=== PATIENT | female | born 1985 | race Caucasian/White ===

== ENCOUNTER 2019-08-28 11:50 | Emergency (ER) | payer OTHER, SELFPAY ==
--- NOTE | ~2019-08-28 | XR_ITS ---
EXAMINATION: XR chest 2V DATE: 08/28/2019 12:56 INDICATION: Asthma presenting with shortness of breath, cough and left basilar crackles. TECHNIQUE: PA and lateral views of the chest were obtained. COMPARISON: Chest radiograph dated FINDINGS: The lungs remain clear with no focal airspace opacities, pulmonary edema, pleural effusion or pneumot horax. The cardiomediastinal silhouette is normal. Visualized bones and soft tissues are unremarkable . IMPRESSION: 1. No acute cardiopulmonary disease. Reviewed, dictated and finalized at location A.
[2019-08-28 11:57] VITALS: BP 150/97; PULSE 20; RESP 20; TEMP 37.7; O2SAT 97
--- NOTE | 2019-08-28 12:26 | ED.URI ---
HPI - URI/Sore Throat General Chief Complaint: Upper Respiratory Infection Stated Complaint: cough and chest hurting / Time Seen by Provider: 08/28/19 12:26 Source: patient and RN notes reviewed Mode of arrival: ambulatory Limitations: no limitations History of Present Illness HPI Narrative: 34 year old female who is 7 weeks presents to express care with complaints of cough with shortness of breath for the past one week duration. Patient states that she has not had any known fever, chills or sweats, does have history of asthma and seasonal allergies. Patient states that she has been using her inhaler but doesn't seem to be resolving her shortness of breath or cough. Patient states that she has also noted itchy eyes. clear nasal drainage and also itchy feeling ears. Patient states that her cough is productive of clear colored mucous. Patient has noted wheezing in all lung ford with some rhonhi noted to left lung base, SAO2 97% on room air, no tachypnea noted. 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 MD elicited complaint: cough and other Pertinent past history: asthma and seasonal allergies Onset (ago): week(s) (1) Consistency: progressively worsening Severity: moderate Description of mucous: clear Able to tolerate fluids by mouth: Yes Exacerbating factors: exertion and deep breaths Relieving factors: rest and other (inhaler) Associated symptoms: rhinorrhea, cough and shortness of breath Treatments prior to arrival: other (inhaler) Related Data Home Medications Medication Instructions Recorded Confirmed albuterol sulfate 2 puff INHALATION QID 08/28/19 08/28/19 amlodipine 10 mg PO DAILY 08/28/19 08/28/19 cetirizine [Zyrtec] 10 mg PO DAILY 08/28/19 08/28/19 [id number] 1 cap PO DAILY 08/28/19 08/28/19 [One-A-Day Women's 1] Allergies Allergy/AdvReac Type Severity Reaction Status Date / Time Sulfa (Sulfonamide Allergy Unknown Swelling Verified 08/28/19 12:19 Antibiotics) of Lip/Tongue/Throat vancomycin Allergy Unknown Rash Verified 08/28/19 12:19 Review of Systems Review of Systems: Narrative: CONSTITUTIONAL: Denies fever, chills, or sweats. EYES: Denies visual changes, redness, or discharge. ENT:Positive clear rhinorrhea, congestion,no sore throat, itching of ears CARDIOVASCULAR: Denies chest pain, palpitations, or edema. RESPIRATORY: Positive cough or dyspnea especially with exertion. GASTROINTESTINAL: Denies abdominal pain, nausea, vomiting, or diarrhea. GENITOURINARY: Denies dysuria or hematuria. SKIN: Denies rash or itching. MUSCULOSKELETAL: Denies back pain, joint pain, or myalgia. NEUROLOGIC: Denies headache, numbness, or weakness. PSYCHIATRIC: Denies anxiety or depression. All systems reviewed & are unremarkable except as noted in HPI and below PMFSH Past Medical History Medical History (Updated 08/29/19 @ 14:29 by Kyung Connelly NP) Asthma Crohn's disease Hypertension Kidney stone Seasonal allergies Surgical History Surgical History (Updated 08/29/19 @ 14:21 by Kyung Connelly NP) Previous section S/P ureteral stent placement Social History Social History (Updated 08/29/19 @ 14:21 by Kyung Connelly NP) Smoking status: Never smoker Living arrangements: with family Gender identity (if verbalized by the patient): Female Comments At time of signature, agree with nursing past medical, surgical, social history. There is no relevant family history pertinent to the presenting complaint Exam Narrative: Exam Narrative: GENERAL: Well-appearing, well-nourished, and in no acute distress. HEAD: Normocephalic, atraumatic. EYES: PERRLA and EOMI. ENT: Nares turbinates red, clear rhinorrhea no epistaxis. Mucous membranes moist.TM's normal with good light reflex, throat pink with no lesions or exudates, no tonsil swelling, clear nasal drainage noted. NECK: Supple.no lymphadenopathy CHEST:scatterd
== END 2019-08-28 13:40 | disposition home or self-care (01) ==
PROVIDERS: Emergency Provider Registered Nurse
DX: O99.89 Other specified diseases and conditions complicating pregnancy, childbirth and the puerperium (principal); J45.41 Moderate persistent asthma with (acute) exacerbation; Z3A.01 Less than 8 weeks gestation of pregnancy
CPT/HCPCS: 71046; 99213; G0463

== ENCOUNTER 2019-10-28 08:14 | Outpatient (CLI) | payer OTHER, SELFPAY ==
[2019-10-28 09:44] LABS: Basophils Absolute Auto 0.03 K/mm3 (0.00-0.10); Basophils Percent Auto 0.3 % (0.0-1.0); Eosinophils Absolute Auto 0.19 K/mm3 (0.02-0.50); Hematocrit 37.8 % (35.0-49.0); Hemoglobin 13.3 g/dL (12.0-15.0); Immature Granulocyte Absolute 0.13 K/mm3 (0.00-0.00); Immature Granulocyte Percent A 1.4 % (0.0-0.0); Lymphocytes Absolute Auto 1.38 K/mm3 (1.10-4.50); Lymphocytes Percent Auto 14.4 % (18.0-42.0); Mean Corpuscular HGB Conc 35.2 g/dL (32.0-36.0); Mean Corpuscular Hemoglobin 31.1 pg (27.0-31.0); Mean Corpuscular Volume 88.3 fL (78.0-102.0); Mean Platelet Volume 9.1 fl (9.2-11.8); Monocytes Absolute Auto 0.27 K/mm3 (0.10-0.90); Monocytes Percent Auto 2.8 % (2.0-11.0); Neutrophils Absolute Auto 7.6 K/mm3 (1.7-7.2); Neutrophils Percent Auto 79.1 % (50.0-70.0); Platelet Count Result 290 K/mm3 (150-420); Red Blood Count 4.28 M/mm3 (4.20-5.40); Red Cell Distribution Width 13.3 % (11.6-14.4); White Blood Count 9.6 K/mm3 (4.8-10.8)
[2019-10-28 11:17] LABS: Glucose 1 Hour PP 50gm Dose 147 mg/dL (70-130)
[2019-10-28 11:57] LABS: HIV 1 P24 AG Negative (Negative); HIV 1/2 AB Negative (Negative)
[2019-10-30 13:59] LABS: Varicella IgG Antibody >4000.00 Index (>=165.00)
[2019-10-30 19:26] LABS: RPR Screen Non-Reactive (Non-Reactive)
[2019-10-31 02:45] LABS: Hepatitis B Surface Antigen Nonreactive (Nonreactive)
[2019-10-31 10:31] LABS: CMV IgG Antibody <0.60 U/mL (<0.60)
[2019-11-01 17:12] LABS: Rubella IgG Antibody 1.47 Index (>=1.00)
== END 2019-10-28 08:15 | disposition home or self-care (01) ==
PROVIDERS: Visit Provider Obstetrics & Gynecology
DX: N92.5 Other specified irregular menstruation (principal)
CPT/HCPCS: 36415; 82947; 84702; 85025; 86592; 86644; 86703; 86747; 86762; 86787; 86850; 86900; 86901; 87086

== ENCOUNTER 2019-11-02 08:42 | Outpatient (CLI) | payer OTHER, SELFPAY ==
[2019-11-02 09:23] LABS: Glucose Fasting Gestational 94 mg/dL (>/=95)
[2019-11-02 10:40] LABS: Glucose 1 Hour Gest 163 mg/dL (70-130)
[2019-11-02 11:19] LABS: Glucose 2 Hour Gest 133 mg/dL (<155)
[2019-11-02 12:15] LABS: Glucose 3 Hour Gest 129 mg/dL (>/=140)
== END 2019-11-02 08:43 | disposition home or self-care (01) ==
LOC: CHSLAB 08:44
PROVIDERS: PCP Obstetrics & Gynecology; Visit Provider Obstetrics & Gynecology
DX: R73.09 Other abnormal glucose (principal)
CPT/HCPCS: 36415; 82951; 82952

== ENCOUNTER 2019-11-11 10:23 | Emergency (ER) | payer OTHER, SELFPAY ==
--- NOTE | ~2019-11-11 | US_ITS ---
EXAMINATION: US OB limited DATE: 11/11/2019 12:43 INDICATION: Inconsistent heart tones during second trimester . TECHNIQUE: Real-time ultrasound of the pelvis was performed. The interpreting radiologist was not pre sent for the study. COMPARISON: None. FINDINGS: There is a single living fetus in vertex presentation. The placenta is posterior and low-lying with caudal margin 2.3 cm from the internal cervical os. heart rate is 141 beats per minute (bpm). T he amniotic fluid volume is subjectively normal. 1 cm low-attenuation centered in the myometrium of t he anterior lower uterine segment which appears subtly visible on the prior study which could represe nt either a small fibroid or a granuloma along a section scar. IMPRESSION: 1. Single living fetus in vertex presentation with heart rate of 141 bpm. 2. Low-lying placenta with caudal margin 2.3 cm from the internal cervical os. 3. 1 cm hypoechoic likely uterine fibroid in the anterior wall of the lower uterine segment. Reviewed, dictated and finalized at location A. IMPRESSION: 1. Single living fetus in vertex presentation with heart rate of 141 bpm . 2. Low-lying placenta with caudal margin 2.3 cm from the internal cervical os. 3. 1 cm hypoechoic likely uterine fibroid in the anterior wall of the lower carter rine segment.
[2019-11-11 10:47] LABS: Glucose Point of Care 136 (65-105)
[2019-11-11 10:50] VITALS: BP 164/98; PULSE 95; RESP 16; TEMP 36.6; O2SAT 100
[2019-11-11] MEDS: SODIUM CHLORIDE 0.9% IV 500 ML IV CONT (11:05)
[2019-11-11 11:10] VITALS: BP 136/92; PULSE 97; RESP 14; O2SAT 100
[2019-11-11 11:12] LABS: Basophils Absolute Auto 0.04 K/mm3 (0.00-0.10); Basophils Percent Auto 0.4 % (0.0-1.0); Eosinophils Absolute Auto 0.12 K/mm3 (0.02-0.50); Eosinophils Percent Auto 1.1 % (1.0-6.0); Hemoglobin 12.5 g/dL (12.0-15.0); Immature Granulocyte Absolute 0.17 K/mm3 (0.00-0.00); Immature Granulocyte Percent A 1.6 % (0.0-0.0); Lymphocytes Absolute Auto 1.29 K/mm3 (1.10-4.50); Lymphocytes Percent Auto 12.1 % (18.0-42.0); Mean Corpuscular HGB Conc 34.7 g/dL (32.0-36.0); Mean Corpuscular Hemoglobin 30.9 pg (27.0-31.0); Mean Corpuscular Volume 88.9 fL (78.0-102.0); Mean Platelet Volume 9.2 fl (9.2-11.8); Monocytes Absolute Auto 0.37 K/mm3 (0.10-0.90); Monocytes Percent Auto 3.5 % (2.0-11.0); Neutrophils Absolute Auto 8.7 K/mm3 (1.7-7.2); Neutrophils Percent Auto 81.3 % (50.0-70.0); Platelet Count Result 291 K/mm3 (150-420); Red Blood Count 4.05 M/mm3 (4.20-5.40); Red Cell Distribution Width 13.4 % (11.6-14.4); White Blood Count 10.7 K/mm3 (4.8-10.8)
[2019-11-11 11:13] LABS: Add Urine Microscopic? YES; Bilirubin Urine Negative (Negative); Blood Urine Negative (Negative); Color Urine Yellow (Yellow); Glucose Urine UA Negative (Negative); Ketones Urine Trace (Negative); Leukocyte Esterase Ur Trace LEU/UL (Negative); Nitrate Urine Negative (Negative); Protein Urine 1+ (Negative); Specific Grav Ur >= 1.030 (1.010-1.020); Urobilinogen Urine 0.2 mg/dL (0.2-1.0)
[2019-11-11 11:18] LABS: Appearance Urine Sl Cloudy (Clear); Bacteria Urine 2+ /hpf; Mucus Urine Few /lpf; RBC Urine 0-2 /hpf (0-2); Squamous Epithelial Cell Urine Moderate /hpf (Few)
--- NOTE | 2019-11-11 11:34 | PC.NURSE ---
RN attempted heart tones at this time. Very brief heart tones. RN was unable to get a rate with doppler. erp made aware.
[2019-11-11 11:54] LABS: Alanine Aminotransferase 18 U/L (14-59); Albumin Level 3.1 g/dL (3.4-5.0); Alkaline Phosphatase 71 U/L (46-116); Aspartate Amino Transferase 12 U/L (15-37); Bilirubin,Total 0.1 mg/dL (0.00-1.00); Blood Urea Nitrogen 4 mg/dL (7-18); Calcium 8.9 mg/dL (8.5-10.1); Carbon Dioxide 26 mmol/L (21-32); Chloride 103 mmol/L (98-108); Estimated CRCL calculation 117 ml/min; Estimated Glomerular Filt Rate > 60; Glucose 136 mg/dL (70-99); Osmolality Calculated 286 mOsm/kg (285-295); Sodium 139 mmol/L (136-145); Total Protein 7.3 g/dL (6.4-8.2)
[2019-11-11 11:55] LABS: Partial Thromboplastin Time 24.4 SEC (22.3-31.6)
[2019-11-11] MEDS: ACETAMINOPHEN 325 MG TABLET 650 MG PO (12:25)
--- NOTE | 2019-11-11 12:35 | ED.DIZZY ---
HPI - Dizziness General Chief Complaint: Dizziness Stated Complaint: 34YO at 16 weeks IUP w/ known h.o HTN was on amiodarone which was discontinued at onset of by OB. Her Bp were bring monitored by OB and has started her first dose of labetalol 100mg today followed by lightheadedness while at work. Here for [employer], works at [employer]. Admits to feeling baby move.ss out/Shakey Related Data Home Medications Medication Instructions Recorded Confirmed albuterol sulfate 2 puff INHALATION QID 08/28/19 11/11/19 [id number] 1 cap PO DAILY 08/28/19 11/11/19 [One-A-Day Women's 1] labetalol 100 mg PO Q12H 11/11/19 11/11/19 Allergies Allergy/AdvReac Type Severity Reaction Status Date / Time Sulfa (Sulfonamide Allergy Unknown Swelling Verified 08/28/19 12:19 Antibiotics) of Lip/Tongue/Throat vancomycin Allergy Unknown Rash Verified 08/28/19 12:19 Review of Systems Review of Systems: All systems reviewed & are unremarkable except as noted in HPI and below Constitutional: Constitutional: Reports as per HPI and Reports no additional constitutional complaints Eyes: Eyes: Reports as per HPI and Reports no additional eye complaints ENT: Reports system reviewed and no additional complaints, except as documented and Reports as per HPI Cardiovascular: Cardiovascular: Reports as per HPI and Reports no additional cardiovascular complaints Respiratory: Respiratory: Reports as per HPI and Reports no additional respiratory complaints Gastrointestinal: Gastrointestinal: Reports as per HPI and Reports no additional gastrointestinal complaints Genitourinary: Genitourinary: Reports no additional female genitourinary complaints and Reports as per HPI Musculoskeletal: Musculoskeletal: Reports no additional musculoskeletal complaints and Reports as per HPI Integumentary/Breasts: Skin/Breast: Reports system reviewed and no additional complaints, except as docu Neurologic: Denies confusion, Denies vertigo, Reports dizziness (LIghtheaded while at work today), Denies syncope, Denies headache(s), Denies focal weakness, Denies numbness and Denies weakness Psychiatric: Psychiatric: Reports no additional psychiatric complaints Endocrine: Endocrine: Reports no additional endocrine complaints Hematologic/Lymphatic: Hematologic/Lymphatic: Reports no additional hematologic/lymphatic complaints Allergic/Immunologic: Allergic/Immunologic: Reports no additional allergic/immunologic complaints [facility] [place] Past Medical History Medical History Asthma Crohn's disease Hypertension Kidney stone Seasonal allergies Surgical History Surgical History Previous section S/P ureteral stent placement Social History Social History Smoking status: Never smoker Gender identity (if verbalized by the patient): Female Exam Const: General: no acute distress HENMT: Head: normal to inspection Eyes: Pupils: Equal, round and reactive pupils present Chest: Chest palpation & inspection: normal inspection of the chest Resp: Effort & Inspection: normal respiratory effort Auscultation: clear to auscultation bilaterally Cardio: Rate: regular rate Rhythm: regular rhythm GI: Inspection: distended Other: Gravid : General: Yes no CVA tenderness Back/Spine/Pelvis: Back: no CVA tenderness Neuro: General: patient oriented x3, moves all extremities, no focal motor deficits and CN's II-XI intact bilaterally Extrem: General: normal to inspection Psych: Mental Status: mental status grossly normal Course Course Emergency Course: D/W Dr Carpio (OB) covering for Dr Herrera (OB). Reviewed results of w/u with him. He is comfortable d/c patyient home to f/u w/ Dr Koenig at next scheduled appt. He feels patients symptoms are explained by likely
[2019-11-11] MEDS: ONDANSETRON INJ 4 MG/2 ML VIAL IV PUSH (12:48)
--- NOTE | 2019-11-11 13:09 | PC.NURSE ---
OBGYN CONSULTED AT THIS TIME WITH ER FINDINGS. PLEASE SEE ERP DOCUMENTATION.
[2019-11-11] MEDS: POTASSIUM CHLORIDE 20 MEQ TABLET 40 MEQ PO (13:18)
[2019-11-11 13:19] VITALS: BP 145/77; PULSE 98; RESP 14; O2SAT 95
== END 2019-11-11 13:24 | disposition home or self-care (01) ==
PROVIDERS: Emergency Provider Family Medicine; PCP Obstetrics & Gynecology
DX: E86.0 Dehydration (principal); Z33.1 Pregnant state, incidental
CPT/HCPCS: 36415; 76815; 80053; 81001; 84702; 85025; 85610; 85730; 96361; 96374; 99283; 99284; A9270; J2405; J7040

== ENCOUNTER 2019-11-25 12:52 | Outpatient (CLI) | payer OTHER, SELFPAY ==
[2019-11-25 13:11] LABS: Total Protein Urine Random 28.1 mg/dL (0.0-11.9)
[2019-11-25 13:12] LABS: Total Protein Urine 24 Hr 253 mg/24hr (0-149); Total Volume 24 Hour Urine 900 ml
== END 2019-11-25 12:53 | disposition home or self-care (01) ==
LOC: CHSLAB 12:54
PROVIDERS: PCP Obstetrics & Gynecology; Visit Provider Obstetrics & Gynecology
DX: O16.9 Unspecified maternal hypertension, unspecified trimester (principal)
CPT/HCPCS: 81050; 84156

== ENCOUNTER 2019-11-27 12:24 | Observation (INO) | payer OTHER, SELFPAY ==
[2019-11-27 14:45] VITALS: BP 140/85; PULSE 93
[2019-11-27 15:00] VITALS: BP 141/89; PULSE 83
[2019-11-27] MEDS: DEXTROSE 5%/LACTATED RINGERS 1,000 ML 1000 ML IV CONT (15:12)
[2019-11-27] MEDS: FAMOTIDINE 20 MG/2 ML VIAL IV PUSH (15:14)
[2019-11-27] MEDS: PROMETHAZINE HCL 25 MG/ML AMPUL 12.5 MG IV PUSH (15:14)
[2019-11-27 15:15] VITALS: BP 147/81; PULSE 88
[2019-11-27 15:20] LABS: Add Urine Microscopic? YES; Appearance Urine Cloudy (Clear); Bacteria Urine Trace /hpf; Bilirubin Urine Negative (Negative); Blood Urine Negative (Negative); Color Urine Yellow (Yellow); Glucose Urine UA Negative (Negative); Ketones Urine 2+ mg/dL (Negative); Leukocyte Esterase Ur 2+ LEU/UL (NEGATIVE); Mucus Urine Heavy /lpf; Nitrate Urine Negative (Negative); Protein Urine 2+ mg/dL (Negative); Specific Grav Ur 1.026 (1.001-1.035); Squamous Epithelial Cell Urine Many /hpf (Few); Urobilinogen Urine Negative mg/dL (<2.0)
[2019-11-27] MEDS: LACTATED RINGERS 1,000 ML 999 ML IV CONT (16:17)
[2019-11-27 17:04] VITALS: BMI 35.2
[2019-11-27 17:15] VITALS: RESP 18; TEMP 36.6
[2019-11-27] MEDS: ACETAMINOPHEN 325 MG TABLET 650 MG PO (17:26)
--- NOTE | 2019-11-27 19:00 | PC.NURSE ---
pt ate regular diet meal tray and denies n/v.
--- NOTE | 2019-12-07 11:22 | PM.OBTRLD ---
OB - Triage/Final Diagnosis Evaluation Laboratory results: Laboratory Tests 11/27/19 14:53 Urine Color Yellow Urine Appearance Cloudy H Urine pH 6.0 Ur Specific [place] 1.026 Urine Protein 2+ H Urine Glucose (UA) Negative Urine Ketones 2+ H Ur Blood (Man) Negative Urine Nitrate Negative Urine Bilirubin Negative Urine Urobilinogen Negative Ur Leukocyte Esterase 2+ H Urine RBC 3-5 H Urine WBC 7-9 H Ur Squamous Epith Cells Many H Urine Bacteria Trace Urine Mucus Heavy H Final Diagnosis (1) Nausea & vomiting: Code(s): R11.2 - Nausea with vomiting, unspecified Status: Acute
== END 2019-11-27 19:22 | disposition home or self-care (01) ==
PROVIDERS: Admitting Provider Obstetrics & Gynecology; PCP Obstetrics & Gynecology; Visit Provider Obstetrics & Gynecology
DX: O21.9 Vomiting of pregnancy, unspecified (principal); Z3A.00 Weeks of gestation of pregnancy not specified
CPT/HCPCS: 81001; 87086; 96361; 96374; 96375; A9270; G0378; G0379; J2550; J7120; J7121

== ENCOUNTER 2019-12-10 18:18 | Emergency (ER) | payer OTHER, SELFPAY ==
[2019-12-10 18:30] VITALS: BP 166/103; PULSE 107; RESP 18; TEMP 36.5; O2SAT 100
--- NOTE | 2019-12-10 18:52 | ED.ARRPALP ---
HPI - Arrhythmia/Palpitations General Chief Complaint: Arrhythmia/Palpitations Stated Complaint: heart palpitations, 21 weeks Time Seen by Provider: 12/10/19 18:52 History of Present Illness HPI narrative: 34-year-old female patient, 4 and para 3, approximately 21 weeks is here with chief complaints of palpitations. The patient states that she has had intermittent palpitations off and on for a while. She denies any associated chest pain except for feeling some heaviness at the time of palpitations. She denies any unusual shortness of breath. She denies any leg swelling. She denies any lightheadedness or passing out spells. The patient states that she has had blood pressure in this and prior pregnancies as well. 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 She has notified of the same to her obstruction and has an appointment coming up next Saturday with him. She states that the baby is kicking around well and has not had any vaginal discharge or bleeding. Related Data Home Medications Medication Instructions Recorded Confirmed albuterol sulfate 2 puff INHALATION QID 08/28/19 11/11/19 metoclopramide HCl 10 mg PO PRN PRN 12/10/19 12/10/19 montelukast 10 mg PO DAILY 12/10/19 12/10/19 Allergies Allergy/AdvReac Type Severity Reaction Status Date / Time Sulfa (Sulfonamide Allergy Unknown Swelling Verified 08/28/19 12:19 Antibiotics) of Lip/Tongue/Throat vancomycin Allergy Unknown Rash Verified 08/28/19 12:19 Review of Systems Review of Systems: All systems reviewed & are unremarkable except as noted in HPI and below Constitutional: Constitutional: Reports no additional constitutional complaints Eyes: Eyes: Reports no additional eye complaints, Denies change in vision and Denies photophobia ENT: Denies dysphagia, Denies vertigo, Denies dizziness, Denies nasal congestion and Denies sore throat Cardiovascular: Cardiovascular: Reports no additional cardiovascular complaints, Denies chest pain, Reports rapid heart rate and Denies radiating jaw, neck or arm pain Respiratory: Respiratory: Reports no additional respiratory complaints, Denies cough, Denies dyspnea and Denies wheezing Gastrointestinal: Gastrointestinal: Reports no additional gastrointestinal complaints, Denies abdominal pain, Denies diarrhea, Denies nausea and Denies vomiting Genitourinary: Genitourinary: Reports no additional female genitourinary complaints Musculoskeletal: Musculoskeletal: Reports no additional musculoskeletal complaints, Denies myalgias, Denies arthralgias, Denies joint swelling and Denies muscle cramps Integumentary/Breasts: Skin/Breast: Reports system reviewed and no additional complaints, except as docu Neurologic: Reports system reviewed and no additional complaints, except as documented, Denies confusion, Denies vertigo, Denies dizziness, Denies syncope, Denies headache(s), Denies focal weakness, Denies numbness and Denies weakness Psychiatric: Psychiatric: Reports no additional psychiatric complaints PMFSH Past Medical History Medical History Asthma Crohn's disease Hypertension Kidney stone Seasonal allergies Surgical History Surgical History Previous section S/P ureteral stent placement Social History Social History Smoking status: Never smoker Gender identity (if verbalized by the patient): Female Exam Const: General: healthy appearing, no acute distress and alert; No diaphoretic or ill appearing Nutritional Appearance: well nourished Orientation/consciousness: patient oriented x3 Limitations: no limitations HENMT: Head: normal to inspection Mouth: Yes Normal oral and palatal mucosa present Ey
[2019-12-10 19:02] VITALS: BP 166/96; PULSE 96; RESP 18; O2SAT 100
[2019-12-10 19:19] LABS: Add Urine Microscopic? YES; Appearance Urine Clear (Clear); Basophils Absolute Auto 0.03 K/mm3 (0.00-0.10); Basophils Percent Auto 0.3 % (0.0-1.0); Bilirubin Urine Negative (Negative); Blood Urine Negative (Negative); Color Urine Yellow (Yellow); Eosinophils Absolute Auto 0.34 K/mm3 (0.02-0.50); Glucose Urine UA Negative (Negative); Hematocrit 34.7 % (35.0-49.0); Hemoglobin 11.9 g/dL (12.0-15.0); Immature Granulocyte Absolute 0.15 K/mm3 (0.00-0.00); Immature Granulocyte Percent A 1.3 % (0.0-0.0); Ketones Urine 3+ (Negative); Leukocyte Esterase Ur 1+ (Negative); Lymphocytes Absolute Auto 1.82 K/mm3 (1.10-4.50); Lymphocytes Percent Auto 16.2 % (18.0-42.0); Mean Corpuscular HGB Conc 34.3 g/dL (32.0-36.0); Mean Corpuscular Hemoglobin 30.7 pg (27.0-31.0); Mean Corpuscular Volume 89.4 fL (78.0-102.0); Mean Platelet Volume 9.3 fl (9.2-11.8); Monocytes Percent Auto 5.3 % (2.0-11.0); Neutrophils Absolute Auto 8.3 K/mm3 (1.7-7.2); Neutrophils Percent Auto 73.9 % (50.0-70.0); Nitrate Urine Negative (Negative); Platelet Count Result 301 K/mm3 (150-420); Protein Urine Negative (Negative); Red Blood Count 3.88 M/mm3 (4.20-5.40); Red Cell Distribution Width 13.6 % (11.6-14.4); Urobilinogen Urine 0.2 mg/dL (0.2-1.0); White Blood Count 11.3 K/mm3 (4.8-10.8)
[2019-12-10 19:33] VITALS: BP 133/82; PULSE 99; RESP 18; O2SAT 99
[2019-12-10 19:33] LABS: Bacteria Urine 1+ /hpf; Calcium Oxalate Crystals Urine Present /hpf; RBC Urine 0-2 /hpf (0-2); Squamous Epithelial Cell Urine Few /hpf (Few)
[2019-12-10 19:37] LABS: Alanine Aminotransferase 15 U/L (14-59); Alkaline Phosphatase 85 U/L (46-116); Aspartate Amino Transferase 14 U/L (15-37); Bilirubin Direct 0.1 mg/dL (0-0.2); Bilirubin,Total 0.2 mg/dL (0.00-1.00); Total Protein 7.1 g/dL (6.4-8.2)
[2019-12-10 19:47] VITALS: BP 125/77
== END 2019-12-10 20:21 | disposition home or self-care (01) ==
PROVIDERS: Emergency Provider Emergency Medicine
DX: R00.2 Palpitations (principal)
CPT/HCPCS: 36415; 80076; 81001; 85025; 99283

== ENCOUNTER 2019-12-25 11:29 | Observation (INO) | payer OTHER, SELFPAY ==
[2019-12-25 12:00] VITALS: BMI 34.9
[2019-12-25 13:03] VITALS: BP 138/88; PULSE 101
[2019-12-25] MEDS: DEXTROSE 5%/LACTATED RINGERS 1,000 ML 150 ML IV CONT (13:04)
[2019-12-25] MEDS: PROMETHAZINE HCL 25 MG/ML AMPUL 12.5 MG IV PUSH (13:05)
[2019-12-25] MEDS: FAMOTIDINE 20 MG/2 ML VIAL IV PUSH (13:05)
[2019-12-25 13:16] VITALS: BP 125/76; PULSE 95
--- NOTE | 2019-12-25 17:55 | PM.OBTRLD ---
OB - Triage/Final Diagnosis Final Diagnosis (1) Nausea & vomiting: Code(s): R11.2 - Nausea with vomiting, unspecified Status: Acute
== END 2019-12-25 16:32 | disposition home or self-care (01) ==
PROVIDERS: Admitting Provider Obstetrics & Gynecology; Visit Provider Obstetrics & Gynecology
DX: O21.9 Vomiting of pregnancy, unspecified (principal); Z3A.00 Weeks of gestation of pregnancy not specified
CPT/HCPCS: 96374; 96375; G0378; G0379; J2550; J7121

== ENCOUNTER 2020-01-13 11:08 | Outpatient (CLI) | payer OTHER, SELFPAY ==
--- NOTE | 2020-01-13 11:25 | ECG_ITS ---
Measurements Intervals [place] Rate: 87 P: 34 DC: 106 QRS: 12 QRSD: 87 T: -3 QT: 356 QTc: 429 Interpretive Statements SINUS RHYTHM WITH SHORT DC INTERVAL VOLTAGE CRITERIA FOR LVH BORDERLINE T WAVE ABNORMALITY- INFERIOR LEADS BORDERLINE ECG Electronically Signed On 01-13-2020 11:35:23 CDT by Bong Billingsley D.O.
== END 2020-01-13 11:09 | disposition home or self-care (01) ==
PROVIDERS: PCP Obstetrics & Gynecology; Visit Provider Obstetrics & Gynecology
DX: O16.9 Unspecified maternal hypertension, unspecified trimester (principal)
CPT/HCPCS: 93005

== ENCOUNTER 2020-01-29 08:57 | Outpatient (CLI) | payer OTHER, SELFPAY ==
[2020-01-29 10:29] LABS: Hematocrit 33.3 % (37.0-47.0); Hemoglobin 11.4 g/dL (12.0-15.0); Mean Corpuscular HGB Conc 34.2 g/dl (32-36); Mean Corpuscular Hemoglobin 30.9 pg (26-34); Mean Corpuscular Volume 90.2 fl (80-100); Mean Platelet Volume 9.2 fl (7.4-10.4); Platelet Count Result 274 k/mm3 (150-375); Red Blood Count 3.69 M/mm3 (4.2-5.4); Red Cell Distribution Width 14.2 % (11.5-14.5)
[2020-01-29 10:40] LABS: Glucose 1 Hour PP 50gm Dose 142 mg/dL
[2020-01-29 11:21] LABS: HIV 1/2 Ab P24 Ag Result Negative (Negative)
[2020-01-30] MEDS: RHO(D) IMMUNE GLOBULIN 300 MCG SYRINGE IM (09:14)
== END 2020-01-29 08:58 | disposition home or self-care (01) ==
LOC: ANHLAB 08:58
PROVIDERS: Visit Provider Obstetrics & Gynecology
DX: Z34.92 Encounter for supervision of normal pregnancy, unspecified, second trimester (principal); Z3A.00 Weeks of gestation of pregnancy not specified
CPT/HCPCS: 36415; 82947; 85027; 85461; 86703; 90384; 96372; G0432; J2790

== ENCOUNTER 2020-02-26 22:05 | Observation (INO) | payer OTHER, SELFPAY ==
[2020-02-26] VITALS (7 sets, daily range): BP systolic 142–174; BP diastolic 90–121; PULSE 90–106; BMI 35.9
[2020-02-26 23:02] LABS: Add Urine Microscopic? YES; Appearance Urine Cloudy (Clear); Bacteria Urine 1+ /hpf; Bilirubin Urine Negative (Negative); Blood Urine Negative (Negative); Color Urine Yellow (Yellow); Glucose Urine UA Negative (Negative); Ketones Urine 1+ mg/dL (Negative); Leukocyte Esterase Ur 3+ LEU/UL (NEGATIVE); Mucus Urine Rare /lpf; Nitrate Urine Negative (Negative); Protein Urine Negative (Negative); Specific Grav Ur 1.016 (1.001-1.035); Squamous Epithelial Cell Urine Many /hpf (Few); Urobilinogen Urine Negative mg/dL (<2.0); WBC Urine 31-50 /hpf (0-3)
[2020-02-26] MEDS: LABETALOL HCL 100 MG TABLET 200 MG PO (23:10)
[2020-02-26 23:18] LABS: Basophils Percent Auto 0.4 % (0.2-1.2); Eosinophils Absolute Auto 0.3 K/mm3 (0-0.3); Eosinophils Percent Auto 2.6 % (0-4.4); Hematocrit 34.4 % (37.0-47.0); Hemoglobin 11.5 g/dL (12.0-15.0); Immature Granulocyte Absolute 0.17 K/mm3 (0.00-0.031); Immature Granulocyte Percent A 1.5 % (0-0.5); Lymphocytes Percent Auto 16.7 % (18.3-44.2); Mean Corpuscular HGB Conc 33.4 g/dl (32-36); Mean Corpuscular Hemoglobin 29.9 pg (26-34); Mean Corpuscular Volume 89.4 fl (80-100); Mean Platelet Volume 9.6 fl (7.4-10.4); Monocytes Absolute Auto 0.8 K/mm3 (0.1-0.6); Neutrophils Absolute Auto 8.2 K/mm3 (1.3-6.7); Neutrophils Percent Auto 71.8 % (45.5-73.1); Platelet Count Result 297 k/mm3 (150-375); Red Blood Count 3.85 M/mm3 (4.2-5.4); Red Cell Distribution Width 14.5 % (11.5-14.5); White Blood Count 11.4 K/mm3 (4.5-10.0)
[2020-02-26 23:31] LABS: Creatinine Urine 111.4 mg/dL; Total Protein Urine Random 11 mg/dL
[2020-02-26 23:33] LABS: Alanine Aminotransferase 7 U/L (4-35); Albumin Level 3.7 g/dL (3.5-5.1); Alkaline Phosphatase 116 U/L (38-126); Anion Gap 7 mmol/L (8-16); Aspartate Amino Transferase 17 U/L (14-36); Bilirubin,Total 0.2 mg/dL (0.2-1.3); Blood Urea Nitrogen 5 mg/dL (7-17); Calcium 9.8 mg/dL (8.4-10.2); Carbon Dioxide 25 mmol/L (22-30); Chloride 107 mmol/L (98-107); Estimated Glomerular Filt Rate > 60; Glucose 93 mg/dL (65-105); Potassium 3.7 mmol/L (3.4-5.0); Sodium 139 mmol/L (137-145); Uric Acid 5.2 mg/dL (2.5-7.5)
[2020-02-27] VITALS: BP 150/100; PULSE 94
[2020-02-27 00:15] VITALS: BP 147/92; PULSE 89
--- NOTE | 2020-02-27 00:21 | OBADM ---
This patient, Zuleyka Marie, admitted to the OB room OB Post 117 for observation. Patient/family oriented to hospital policies and general routines including ID bracelet, bed and alarms, visiting hours, pain management, procedures, bathroom and other care routines, personal items, smoking policy, room service/diet, and visiting hours. Patient/Family are encouraged to report perceived risks to care and to ask questions if they do not understand what they are told or what they should do.
[2020-02-27 00:30] VITALS: BP 138/84; PULSE 80
[2020-02-27 02:33] VITALS: BP 139/89; PULSE 81
[2020-02-27] MEDS: CALCIUM CARBONATE (TUMS) 500 MG (200 MG ELEMENTAL) PO (02:40)
[2020-02-27] MEDS: FAMOTIDINE 20 MG TABLET PO (02:47)
[2020-02-27 06:51] VITALS: BP 121/78; PULSE 93; RESP 14; TEMP 37.4
[2020-02-27 06:56] VITALS: PULSE 93
[2020-02-27] MEDS: LABETALOL HCL 100 MG TABLET PO (06:56)
[2020-02-27] MEDS: BETAMETHASONE SOD PHOS/ACETATE 30 MG/5 ML VIAL 12 MG IM (07:31)
--- NOTE | 2020-03-02 12:30 | PM.OBTRLD ---
OB - Triage/Final Diagnosis Visit Information Comments/Additional reasons for admission: Hypertension Evaluation Laboratory results: Laboratory Tests 02/26/20 02/26/20 02/26/20 22:43 22:43 23:08 WBC 11.4 H RBC 3.85 L Hgb 11.5 L Hct 34.4 L MCV 89.4 MCH 29.9 MCHC 33.4 RDW 14.5 Plt Count 297 MPV 9.6 Immature Gran % (Auto) 1.5 H Neut % (Auto) 71.8 Lymph % (Auto) 16.7 L Pickett % (Auto) 7.0 Eos % (Auto) 2.6 Baso % (Auto) 0.4 Lymph # (Auto) 1.90 [place]ett # (Auto) 0.8 H Eos # (Auto) 0.3 Baso # (Auto) 0.0 Abs Immat Gran (auto) 0.17 H Absolute Neuts (auto) 8.2 H Absolute Nucleated RBC 0.0 Nucleated RBC % 0.0 Sodium Potassium Chloride Carbon Dioxide Anion Gap BUN Creatinine Estim Creat Clear Calc Estimated GFR Glucose Uric Acid Calcium Total Bilirubin AST ALT Alkaline Phosphatase Total Protein Albumin Urine Color Yellow Urine Appearance Cloudy H Urine pH 7.0 Ur Specific [place] 1.016 Urine Protein Negative Urine Glucose (UA) Negative Urine Ketones 1+ H Ur Blood (Man) Negative Urine Nitrate Negative Urine Bilirubin Negative Urine Urobilinogen Negative Ur Leukocyte Esterase 3+ H Urine RBC 3-5 H Urine WBC 31-50 H Ur Squamous Epith Cells Many H Urine Bacteria 1+ H Urine Mucus Rare U Random Total Protein 11 Urine Creatinine 111.4 02/26/20 23:08 WBC RBC Hgb Hct MCV MCH MCHC RDW Plt Count MPV Immature Gran % (Auto) Neut % (Auto) Lymph % (Auto) [place]ett % (Auto) Eos % (Auto) Baso % (Auto) Lymph # (Auto) Pickett # (Auto) Eos # (Auto) Baso # (Auto) Abs Immat Gran (auto) Absolute Neuts (auto) Absolute Nucleated RBC Nucleated RBC % Sodium 139 Potassium 3.7 Chloride 107 Carbon Dioxide 25 Anion Gap 7 L BUN 5 L Creatinine 0.60 L Estim Creat Clear Calc Not Reportable Estimated GFR > 60 Glucose 93 Uric Acid 5.2 Calcium 9.8 Total Bilirubin 0.2 AST 17 ALT 7 Alkaline Phosphatase 116 Total Protein 7.0 Albumin 3.7 Urine Color Urine Appearance Urine pH Ur Specific [place] Urine Protein Urine Glucose (UA) Urine Ketones Ur Blood (Man) Urine Nitrate Urine Bilirubin Urine Urobilinogen Ur Leukocyte Esterase Urine RBC Urine WBC Ur Squamous Epith Cells Urine Bacteria Urine Mucus U Random Total Protein Urine Creatinine
== END 2020-02-27 08:35 | disposition home or self-care (01) ==
PROVIDERS: Admitting Provider Obstetrics & Gynecology; Visit Provider Obstetrics & Gynecology
DX: O13.9 Gestational [pregnancy-induced] hypertension without significant proteinuria, unspecified trimester (principal); Z3A.00 Weeks of gestation of pregnancy not specified
CPT/HCPCS: 36415; 80053; 81001; 82570; 84156; 84550; 85025; 87086; 96372; A9270; G0378; G0379; J0702

== ENCOUNTER 2020-02-28 07:52 | Outpatient (CLI) | payer OTHER, SELFPAY ==
[2020-02-28] MEDS: BETAMETHASONE SOD PHOS/ACETATE 30 MG/5 ML VIAL 12 MG IM (08:15)
== END 2020-02-28 07:53 | disposition home or self-care (01) ==
LOC: ANHOBOP 07:58
PROVIDERS: Visit Provider Obstetrics & Gynecology
DX: Z34.90 Encounter for supervision of normal pregnancy, unspecified, unspecified trimester (principal); Z3A.00 Weeks of gestation of pregnancy not specified
CPT/HCPCS: 96372; J0702

== ENCOUNTER 2020-03-23 10:04 | Outpatient (RCR) | payer OTHER, SELFPAY ==
[2020-02-22 13:05] VITALS: BP 120/83; PULSE 91
[2020-02-25 09:32] VITALS: BP 141/88; PULSE 100
[2020-02-29 13:57] VITALS: BP 129/70; PULSE 86
[2020-03-07 12:00] VITALS: BP 124/87; PULSE 82
[2020-03-16 10:13] VITALS: BP 122/82; PULSE 90
--- NOTE | ~2020-03-23 | US_ITS ---
EXAMINATION: US OB BPP wo non-stress DATE: 03/16/2020 10:26 INDICATION: Hypertension. Third trimester of . TECHNIQUE: Real-time pelvic ultrasound was performed. COMPARISON: Ultrasound 03/07/2020 FINDINGS: There is a single living fetus in vertex presentation. The placenta is fundal. heart rate is 1 47 beats per minute (bpm). Biophysical profile performed by the technologist: breathing (30 sec sustained breathing in 30 minutes): 2 out of 2 movement (3 gross body movements in 30 minutes): 2 out of 2 tone (one episode of qysoxoy-pwwwiatjt-ubzlego limb movement): 2 out of 2 Amniotic fluid pocket (2 cm): 2 out of 2 Total score: 8 out of 8 IMPRESSION: 1. Single living fetus in vertex presentation. 2. Biophysical profile 8 out of 8. Reviewed, dictated and finalized at location B. 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
--- NOTE | ~2020-03-23 | US_ITS ---
EXAMINATION: US OB BPP wo non-stress DATE: 02/22/2020 11:30 INDICATION: Hypertension during third trimester of TECHNIQUE: Real-time pelvic ultrasound was performed. The interpreting radiologist was not present fo r the study. COMPARISON: 11/11/2019 FINDINGS: There is a single living fetus in vertex presentation. The placenta is posterior. heart rate i s 144 beats per minute (bpm). Amniotic fluid volume is subjectively normal. Biophysical profile performed by the technologist: breathing (30 sec sustained breathing in 30 minutes): 2 out of 2 movement (3 gross body movements in 30 minutes): 2 out of 2 tone (one episode of qpgjevz-evuovquzb-glxapxf limb movement): 2 out of 2 Amniotic fluid pocket (2 cm): 2 out of 2 Total score: 8 out of 8 IMPRESSION: 1. Single living fetus in vertex presentation with heart rate of 144 bpm. 2. Biophysical profile 8 out of 8. Reviewed, dictated and finalized at location A.
--- NOTE | ~2020-03-23 | US_ITS ---
EXAMINATION: US OB BPP wo non-stress DATE: 03/07/2020 11:53 INDICATION: Gestational hypertension TECHNIQUE: Real-time pelvic ultrasound was performed. The interpreting radiologist was not present fo r the study. COMPARISON: None. FINDINGS: There is a single living fetus in vertex presentation. The placenta is posterior. heart rate is 137 beats per minute (bpm). Biophysical profile performed by the technologist: breathing (30 sec sustained breathing in 30 minutes): 2 out of 2 movement (3 gross body movements in 30 minutes): 2 out of 2 tone (one episode of azgcxcz-nvtxcwsxq-obisyvd limb movement): 2 out of 2 Amniotic fluid pocket (2 cm): 2 out of 2 Total score: 8 out of 8 IMPRESSION: 1. Single living fetus in posterior presentation. 2. Biophysical profile 8 out of 8. Reviewed, dictated and finalized at location A. 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
--- NOTE | ~2020-03-23 | US_ITS ---
EXAMINATION: US OB BPP wo non-stress DATE: 03/23/2020 12:16 INDICATION: Hypertension. Third trimester. TECHNIQUE: Real-time pelvic ultrasound was performed. COMPARISON: Ultrasound 03/16/2020 FINDINGS: There is a single living fetus in vertex presentation. The placenta is posterior. heart rate i s 154 beats per minute (bpm). Biophysical profile performed by the technologist: breathing (30 sec sustained breathing in 30 minutes): 2 out of 2 movement (3 gross body movements in 30 minutes): 0 out of 2 tone (one episode of sgxdzkl-gwunjopif-rhcajue limb movement): 2 out of 2 Amniotic fluid pocket (2 cm): 2 out of 2 Total score: 6 out of 8 IMPRESSION: 1. Single living fetus in vertex presentation. 2. Biophysical profile 6 out of 8. Reviewed, dictated and finalized at location A. 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
--- NOTE | ~2020-03-23 | US_ITS ---
EXAMINATION: US OB BPP wo non-stress DATE: 02/29/2020 13:21 INDICATION: Gestational hypertension, third trimester TECHNIQUE: Real-time pelvic ultrasound was performed. The interpreting radiologist was not present fo r the study. COMPARISON: 02/22/2020 FINDINGS: There is a single living fetus in vertex presentation. The placenta is posterior. heart rate is 149 beats per minute (bpm). Biophysical profile performed by the technologist: breathing (30 sec sustained breathing in 30 minutes): 2 out of 2 movement (3 gross body movements in 30 minutes): 2 out of 2 tone (one episode of zxkndkk-liwvaogmh-iuzmjam limb movement): 2 out of 2 Amniotic fluid pocket (2 cm): 2 out of 2 Total score: 8 out of 8 IMPRESSION: 1. Single living fetus in vertex presentation. 2. Biophysical profile 8 out of 8. Reviewed, dictated and finalized at location A.
[2020-03-23 11:23] LABS: Basophils Absolute Auto 0.1 K/mm3 (0.0-0.1); Basophils Percent Auto 0.4 % (0.2-1.2); Eosinophils Absolute Auto 0.3 K/mm3 (0-0.3); Eosinophils Percent Auto 2.2 % (0-4.4); Hematocrit 37.3 % (37.0-47.0); Hemoglobin 12.4 g/dL (12.0-15.0); Immature Granulocyte Absolute 0.07 K/mm3 (0.00-0.031); Immature Granulocyte Percent A 0.6 % (0-0.5); Lymphocytes Absolute Auto 1.48 K/mm3 (0.9-3.2); Lymphocytes Percent Auto 12.8 % (18.3-44.2); Mean Corpuscular HGB Conc 33.2 g/dl (32-36); Mean Corpuscular Hemoglobin 29.8 pg (26-34); Mean Corpuscular Volume 89.7 fl (80-100); Monocytes Absolute Auto 0.6 K/mm3 (0.1-0.6); Monocytes Percent Auto 5.5 % (2.6-8.5); Neutrophils Absolute Auto 9.1 K/mm3 (1.3-6.7); Neutrophils Percent Auto 78.5 % (45.5-73.1); Platelet Count Result 280 k/mm3 (150-375); Red Blood Count 4.16 M/mm3 (4.2-5.4); Red Cell Distribution Width 14.6 % (11.5-14.5); White Blood Count 11.5 K/mm3 (4.5-10.0)
[2020-03-23 11:35] LABS: Alanine Aminotransferase 10 U/L (4-35); Alkaline Phosphatase 155 U/L (38-126); Anion Gap 9 mmol/L (8-16); Aspartate Amino Transferase 18 U/L (14-36); Bilirubin,Total 0.3 mg/dL (0.2-1.3); Blood Urea Nitrogen 4 mg/dL (7-17); Carbon Dioxide 25 mmol/L (22-30); Chloride 105 mmol/L (98-107); Estimated Glomerular Filt Rate > 60; Glucose 93 mg/dL (65-105); Potassium 4.1 mmol/L (3.4-5.0); Sodium 139 mmol/L (137-145); Uric Acid 5.8 mg/dL (2.5-7.5)
[2020-03-23 12:27] VITALS: PULSE 81
== END 2020-03-30 08:26 | disposition home or self-care (01) ==
LOC: ANHOBOP 10:04
PROVIDERS: Visit Provider Obstetrics & Gynecology
DX: O16.3 Unspecified maternal hypertension, third trimester (principal); Z3A.32 32 weeks gestation of pregnancy; Z3A.33 33 weeks gestation of pregnancy; Z3A.34 34 weeks gestation of pregnancy; Z3A.35 35 weeks gestation of pregnancy; Z3A.36 36 weeks gestation of pregnancy
CPT/HCPCS: 36415; 59025; 76819; 80053; 84550; 85025

== ENCOUNTER 2020-03-26 09:08 | Outpatient (CLI) | payer OTHER, SELFPAY ==
[2020-03-26 09:37] LABS: Hemoglobin 11.7 g/dL (12.0-15.0); Mean Corpuscular HGB Conc 33.4 g/dl (32-36); Mean Corpuscular Volume 86.8 fl (80-100); Mean Platelet Volume 10.1 fl (7.4-10.4); Platelet Count Result 297 k/mm3 (150-375); Red Blood Count 4.03 M/mm3 (4.2-5.4); Red Cell Distribution Width 14.5 % (11.5-14.5)
[2020-03-28 07:02] LABS: Rapid Plasma Reagin Non-Reactive (NonReactive)
== END 2020-03-26 09:09 | disposition home or self-care (01) ==
PROVIDERS: Visit Provider Obstetrics & Gynecology
DX: Z34.93 Encounter for supervision of normal pregnancy, unspecified, third trimester (principal); Z3A.00 Weeks of gestation of pregnancy not specified
CPT/HCPCS: 36415; 85027; 86592; 86850; 86900; 86901

== ENCOUNTER 2020-03-28 09:53 | Inpatient (IN) | payer OTHER, SELFPAY ==
--- NOTE | 2020-03-23 13:31 | PC.NURSE ---
VERIFIED WITH OR SCHEDULE AND PATIENT--C/S ON 03/28/20 AT 1200 PATIENT STATES SHE IS TO HAVE A TUBAL WITH C/S--INFORMED PATIENT -ONLY THING ON THE SCHEDULE IS C/S. PATIENT GIVEN REQUISITION FOR LAB DRAW ON Saturday03/26/20
[2020-03-28] VITALS (67 sets, daily range): BP systolic 69–168; BP diastolic 13–103; PULSE 62–92; RESP 16–20; TEMP 36.1–37.1; O2SAT 97–100; BMI 36.3
--- NOTE | 2020-03-28 10:28 | LDADM ---
This patient, Zuleyka Marie, was admitted to OB Post 115 on 03/28/20 at 09:53. Plans for labor, pain management and were discussed with patient. Patient/family oriented to hospital policies and general routines including ID bracelet, bed and alarms, visiting hours, pain management, procedures, bathroom and other care routines, personal items, smoking policy, room service/diet and guest tray routines, security routines, and visiting hours. Patient/Family are encouraged to report perceived risks to care and to ask questions if they do not understand what they are told or what they should do. See OBIX for further documentation.
--- NOTE | 2020-03-28 10:45 | WPDANESEPPF ---
Anes - Initial Pre Proc Eval Procedure: Operation Date: 03/28/20 12:00 Proposed Procedures p Repeat Section with Bilateral Tubal Ligation - Aman Koenig MD Date/Time: 03/28/20 10:45 Surgeon: Aman Koenig MD Pre Op Diagnosis: scheduled Patient Data Age: 34 Gender: F Height: 1.57 m Weight: 90 kg Last Vital Signs Pulse 92 03/28/20 10:31 BP 154/89 H 03/28/20 10:31 Allergies Allergy/AdvReac Type Severity Reaction Status Date / Time Sulfa (Sulfonamide Allergy Unknown Swelling Verified 03/23/20 12:44 Antibiotics) of Lip/Tongue/Throat vancomycin Allergy Unknown Rash Verified 03/23/20 12:44 Home Medications Medication Instructions Recorded Confirmed Type albuterol sulfate 2 puff INHALATION QID PRN 08/28/19 02/25/20 History metoclopramide HCl 10 mg PO PRN PRN 12/10/19 02/25/20 History montelukast 10 mg PO DAILY 12/10/19 02/25/20 History calcium carbonate 200 mg PO Q6H PRN tablet 02/27/20 Rx labetalol 100 mg PO Q8HR tablet 02/27/20 Rx Patient hx anesthesia problems: none Family hx anesthesia problems: none PMFSH Past Medical History Medical History (Updated 12/11/19 @ 00:00 by Jimena Michael) Asthma Crohn's disease Hypertension Kidney stone Seasonal allergies Surgical History Surgical History Previous section S/P ureteral stent placement Family History Family History (Updated 03/23/20 @ 12:45 by Soco Amador RN) Father Hypertension Heart disease Social History Social History Smoking status: Never smoker Second hand tobacco smoke exposure: Yes Substance use: never Gender identity (if verbalized by the patient): Female Spiritual care concerns: No Anes - Eval Final PreProcedure Day of Procedure 03/28/20 10:45 Patient weight: obese Heart: regular rate and rhythm Lungs: clear to auscultation and normal air movement Airway: Mallampati scale class III Neurological: alert and oriented Last oral intake: >/= 8 hours ASA classification: III Emergent: no Anesthetic plan: proceed Anesthesia type and monitoring: regional spinal and standard monitoring Informed Consent: The patient's anesthetic plan and its attendant risks and benefits were discussed with the patient/family/POA. Questions were solicited and answers provided to the satisfaction of the patient/family/POA.
--- NOTE | 2020-03-28 11:14 | WPDHPUPDATE1 ---
History and Physical Update Update Date/Time: 03/28/20 11:14 History and Physical has been reviewed, including an updated exam of the patient. There are NO changes in the patient's condition. Risks, benefits, and alternatives have been discussed and questions answered. Patient agrees to proceed with procedure.
--- NOTE | 2020-03-28 11:14 | PM.IMHP ---
H&P: HPI History of Present Illness Date/Time: 03/28/20 11:14 Chief complaint: scheduled Narrative: Zuleyka Marie is a 34 year old female 003 presents at 37 weeks for repeat delivery. This has been complicated with hypertension and her blood pressures have been mild to moderately elevated even on blood pressure medications. Most recently been on labetalol 100 mg 3 times a day though often times unable to take 3 doses and also unable to take 200 mg due to side effects. Has had testing which has all been reassuring and also steroids earlier in the . We discussed sterilization and she does desire to proceed with tubal ligation understanding that it is permanent. Review of Systems Review of Systems: All systems reviewed & are unremarkable except as noted in HPI and below PMFSH Past Medical History Medical History (Updated 03/28/20 @ 11:19 by Aman Koenig MD) Asthma Crohn's disease Hypertension Kidney stone Seasonal allergies Surgical History Surgical History Previous section S/P ureteral stent placement Family History Family History Father Hypertension Heart disease Social History Social History Smoking status: Never smoker Second hand tobacco smoke exposure: Yes Substance use: never Gender identity (if verbalized by the patient): Female Spiritual care concerns: No Meds Home Medications and Allergies Home Medications Medication Instructions Recorded Confirmed Type albuterol sulfate 2 puff INHALATION QID PRN 08/28/19 02/25/20 History metoclopramide HCl 10 mg PO PRN PRN 12/10/19 02/25/20 History montelukast 10 mg PO DAILY 12/10/19 02/25/20 History calcium carbonate 200 mg PO Q6H PRN tablet 02/27/20 Rx labetalol 100 mg PO Q8HR tablet 02/27/20 Rx Allergies Allergy/AdvReac Type Severity Reaction Status Date / Time Sulfa (Sulfonamide Allergy Unknown Swelling Verified 03/23/20 12:44 Antibiotics) of Lip/Tongue/Throat vancomycin Allergy Unknown Rash Verified 03/23/20 12:44 Vital Signs Vital Signs - 24 hr 03/28/20 10:15 03/28/20 10:31 03/28/20 10:46 Pulse Rate 82 92 86 Blood Pressure 157/103 H 154/89 H 158/87 H 03/28/20 11:01 Pulse Rate 80 Blood Pressure 153/95 H Exam Const: General: cooperative and healthy appearing Resp: Effort & Inspection: normal respiratory effort Auscultation: clear to auscultation bilaterally Cardio: Rate: regular rate Rhythm: regular rhythm GI: Inspection: normal to inspection Auscultation: normal bowel sounds Other: Fundal height 37cm. heart tones 140. Assessment and Plan Assessment and plan (1) 37 weeks gestation of : Code(s): Z3A.37 - 37 weeks gestation of Status: Acute (2) Hypertension affecting : Code(s): O16.9 - Unspecified maternal hypertension, unspecified trimester Status: Acute (3) Encounter for female sterilization procedure: Code(s): Z30.2 - Encounter for sterilization Status: Acute Additional Plan Proceed with repeat section and tubal ligation.
[2020-03-28] MEDS: ceFAZolin 2 GM/D5W 50 ML 2 GM/50 ML BAG IVPB (11:16)
[2020-03-28] MEDS: KETOROLAC 30 MG/ML VIAL (*BKC) IV PUSH ×3 (11:40→22:33)
--- NOTE | 2020-03-28 12:12 | PM.OBPRVD ---
OB - Delivery Note Procedure Procedure: Procedures Operation Date: 03/28/20 12:00 <No data on this case meets the specified criteria> Route of delivery: (With bilateral tubal ligation) Specimen: Yes Estimated blood loss (mL): 600 Anesthesia type: Epidural Disposition: floor Narrative: Patient prepped in usual manner for this procedure. Pfannenstiel incision was made which was carried down to the fascia. Fascial incision was extended bilaterally and then superiorly and inferiorly dissected away from rectus muscles. Peritoneum was readily entered and bladder flap was developed. Uterus was scored with clear fluid noted. Vertex was delivered without difficulty and the rest of the baby as well. Cord was clamped and cut placenta removed manually and the uterus was exteriorized. Uterus was closed using 0 Monocryl in a running interlocking manner with good approximation hemostasis noted. Bilaterally the tubes were grasped [place] clamps and doubly ligated and the stump of tissue was removed. There was some oozing on the left side which was rendered hemostatic using at 2 0 chromic in a running interlocking manner with good approximation noted. Gelfoam was placed over this area empirically. Uterus returned to the abdomen all subfascial tissue thoroughly inspected and no bleeding was noted. Fascia was approximated 0 vicryl suture from left angle midline and from the right in the midline. Subcutaneous tissue was approximated using 0 plain suture and shania were used to approximate the skin edges. This point seizure was considered terminated with immediate postop condition mother and baby both excellent. Baby Weeks of gestation at delivery: 37 gender: Male Weight (pounds): 5 Weight (ounces): 12 score one minute: 8 score five minutes: 9
[2020-03-28] MEDS: OXYTOCIN 30 UNITS/NS 500 ML 30 UNITS/500 ML BAG 125 UNITS IV CONT (13:06)
--- NOTE | 2020-03-28 14:35 | PC.NURSE ---
Patient transferred to post room #291 per stretcher from labor and delivery. Support person present. Oriented to unit, room, information board, rooming in, admission packet and security measures. Patient verbalizes understanding.
[2020-03-28] MEDS: LABETALOL HCL 100 MG TABLET PO ×2 (15:09→17:55)
[2020-03-28] MEDS: DEXTROSE 5%/0.45% SOD CHL 1,000 ML 125 ML IV CONT (17:10)
[2020-03-28] MEDS: DOCUSATE SODIUM 100 MG CAPSULE PO (17:55)
[2020-03-28] MEDS: HYDROcodone/acetaminophen (*CRX) 5-325 MG TABLET 1 TAB PO (19:10)
[2020-03-28] MEDS: HYDROcodone/acetaminophen (*CRX) 10-325 MG TABLET 1 TAB PO (22:33)
[2020-03-29] VITALS (8 sets, daily range): BP systolic 123–152; BP diastolic 70–99; PULSE 74–85; RESP 16–20; TEMP 36.2–36.9; O2SAT 97–98
[2020-03-29] MEDS: LABETALOL HCL 100 MG TABLET PO ×5 (00:15→23:41)
[2020-03-29] MEDS: HYDROcodone/acetaminophen (*CRX) 10-325 MG TABLET 1 TAB PO ×6 (04:00→23:41)
[2020-03-29 05:27] LABS: Basophils Percent Auto 0.2 % (0.2-1.2); Eosinophils Absolute Auto 0.1 K/mm3 (0-0.3); Hematocrit 28.4 % (37.0-47.0); Hemoglobin 9.5 g/dL (12.0-15.0); Immature Granulocyte Absolute 0.09 K/mm3 (0.00-0.031); Immature Granulocyte Percent A 0.8 % (0-0.5); Lymphocytes Absolute Auto 1.41 K/mm3 (0.9-3.2); Lymphocytes Percent Auto 12.3 % (18.3-44.2); Mean Corpuscular HGB Conc 33.5 g/dl (32-36); Mean Corpuscular Hemoglobin 29.9 pg (26-34); Mean Corpuscular Volume 89.3 fl (80-100); Mean Platelet Volume 10.6 fl (7.4-10.4); Monocytes Absolute Auto 0.7 K/mm3 (0.1-0.6); Monocytes Percent Auto 6.2 % (2.6-8.5); Neutrophils Absolute Auto 9.1 K/mm3 (1.3-6.7); Neutrophils Percent Auto 79.5 % (45.5-73.1); Platelet Count Result 209 k/mm3 (150-375); Red Blood Count 3.18 M/mm3 (4.2-5.4); Red Cell Distribution Width 14.6 % (11.5-14.5); White Blood Count 11.5 K/mm3 (4.5-10.0)
[2020-03-29] MEDS: DOCUSATE SODIUM 100 MG CAPSULE PO ×2 (07:18→15:59)
[2020-03-29] MEDS: POLYSACCHARIDE IRON COMPLEX 150 MG CAPSULE PO ×2 (07:18→15:59)
[2020-03-29] MEDS: IBUPROFEN 600 MG TABLET PO ×3 (07:19→23:41)
[2020-03-29] MEDS: MULTIVIT/MIN/PREN/FOL AC/IRON TABLET 1 TAB PO (07:19)
--- NOTE | 2020-03-29 07:33 | P.PNOB_ITS ---
OB - PN: Subj Subjective Date/time seen: 03/29/20 07:33 Patient comments: pain well controlled and incisional pain [place] baby status: doing well OB - PN: Obj Data Labs CBC & Chem 7: 03/29/20 04:07 Labs: Laboratory Results - last 24 hr 03/29/20 03/29/20 04:07 04:07 WBC 11.5 H RBC 3.18 L Hgb 9.5 L Hct 28.4 L MCV 89.3 MCH 29.9 MCHC 33.5 RDW 14.6 H Plt Count 209 MPV 10.6 H Immature Gran % (Auto) 0.8 H Neut % (Auto) 79.5 H Lymph % (Auto) 12.3 L [place] % (Auto) 6.2 Eos % (Auto) 1.0 Baso % (Auto) 0.2 Lymph # (Auto) 1.41 [place] # (Auto) 0.7 H Eos # (Auto) 0.1 Baso # (Auto) 0.0 Abs Immat Gran (auto) 0.09 H Absolute Neuts (auto) 9.1 H Absolute Nucleated RBC 0.0 Nucleated RBC % 0.0 Blood Type A Negative Antibody Screen TNP OB - PN A/P Plan day: 1 Plan: routine care Time Spent With Patient Time: Total time spent is greater than 50% in coordination of care (as documented) at patient's floor/unit and/or counseling patient: Time with patient: less than 15 minutes
--- NOTE | 2020-03-29 11:08 | WPDANLDPN2 ---
Anes-Prog Note L&D Date/Time: 03/29/20 11:08 Comfortable throughout: section Neuraxial method: spinal Epidural/Spinal procedure site: clean & non-tender Neuro status: Neuro function grossly intact. Cardiovascular status: normal Respiratory status: normal Airway patency: baseline Mental status: baseline Post-Op hydration status: normal Vital Signs: Last Vital Signs Temp 36.2 C L 03/29/20 08:00 Pulse 78 03/29/20 08:00 Resp 16 03/29/20 08:00 BP 131/89 03/29/20 08:00 Pulse Ox 97 03/29/20 08:00 Pain score (VAS): 3 I/O: Intake & Output 03/28/20 03/29/20 03/29/20 23:59 07:59 15:59 Intake Total 800 300 Output Total 250 1100 Balance 550 -800 Post-procedural complaints: none Patient feedback: Patient satisfied with anesthetic care.
--- NOTE | 2020-03-29 11:08 | WPDANLDNPN2 ---
Anes-Prog Note L&D-Neuraxial Date/Time: 03/29/20 11:08 Neuraxial medications: intrathecal PF morphine Opiod-related complaints: none Patient feedback: Patient satisfied with post-operative pain management.
[2020-03-29] MEDS: RHO(D) IMMUNE GLOBULIN 300 MCG SYRINGE IM (13:15)
[2020-03-29] MEDS: TETANUS,DIPHTHERIA,AC PERTUSSIS ADULT (0.5 ML) BOOSTRIX IM (16:03)
[2020-03-30] MEDS: LABETALOL HCL 100 MG TABLET PO ×2 (05:50→12:39)
[2020-03-30] MEDS: IBUPROFEN 600 MG TABLET PO ×2 (05:50→12:40)
[2020-03-30] MEDS: HYDROcodone/acetaminophen (*CRX) 10-325 MG TABLET 1 TAB PO (05:50)
[2020-03-30 07:50] VITALS: BP 149/94; PULSE 78; RESP 18; TEMP 36.2; O2SAT 99
[2020-03-30] MEDS: DOCUSATE SODIUM 100 MG CAPSULE PO (10:47)
[2020-03-30] MEDS: HYDROcodone/acetaminophen (*CRX) 5-325 MG TABLET 1 TAB PO (10:47)
[2020-03-30] MEDS: MULTIVIT/MIN/PREN/FOL AC/IRON TABLET 1 TAB PO (10:48)
[2020-03-30] MEDS: POLYSACCHARIDE IRON COMPLEX 150 MG CAPSULE PO (10:48)
--- NOTE | 2020-03-30 11:59 | PM.OBDSVD ---
DS: Admitting Diagnosis Admitting Diagnosis Admitting Diagnosis: scheduled OB - DS: Summary OB Procedures : None OB Procedures Intrapartum: and Tubal ligation OB Procedures: : None Peripartum Data Procedures: Procedures Operation Date: 03/28/20 12:00 Actual Procedures Side Surgeon p Section Aman Koenig MD Time Spent with Patient Time attestation: Total time spent providing and/or coordinating discharge services: DS: Data Data Completed and Pending Completed studies during hospitalization: Pending at discharge 03/28/20 11:45 Surgical [PTH] Routine Labs on day of discharge: Labs from last 24 hours 03/29/20 04:07 Blood Type A Negative Antibody Screen TNP Screen Negative Baby's Blood Type O pos Baby's ANGEL Negative Doses of RhIg Required 1 Discharge Plan Discharge Discharging Clinician: Aman Koenig Patient Disposition: Home, Self-Care Activity: as tolerated Diet: as tolerated Patient Instructions: Antibiotic Form Stand Alone Forms: General Discharge Information Follow-up/Referrals: Aman Koenig MD [Physician] - 1 Week Discharge Medications: New hydrocodone-acetaminophen 5-325 mg Tablet 1 tab PO Q3H PRN (Reason: Moderate Pain (4-6)) Qty: 30 RF: 0 ibuprofen 600 mg Tablet 600 mg PO Q6H PRN (Reason: Cramping) Qty: 30 RF: 0 amlodipine 10 mg tablet 10 mg PO DAILY Qty: 30 RF: 0 Continued montelukast 10 mg tablet 10 mg PO DAILY RF: 0 albuterol sulfate 90 mcg/actuation Hfa Aerosol Inhaler 2 puff INHALATION QID PRN (Reason: Shortness Of Breath) RF: 0 fluoxetine 20 mg Capsule 20 mg PO DAILY RF: 0 Discontinued labetalol 100 mg Tablet 100 mg PO Q8HR RF: 0 Date of admission: 03/28/20 09:53 Primary Care Provider: PHYSICIAN,CONSUMER LENDING MANAGER Admitting Provider: Aman Koenig Attending physician on admission: Aman Koenig Condition: Stable
[2020-03-30 12:39] VITALS: PULSE 84
[2020-04-02 08:41] VITALS: BP 148/92; PULSE 87; RESP 20; TEMP 36.8; O2SAT 100
== END 2020-03-30 15:04 | disposition home or self-care (01) | DRG 540 ==
LOC: ANHOBPP 09:56 → ANHOB2 14:54
PROVIDERS: Admitting Provider Obstetrics & Gynecology; Visit Provider Obstetrics & Gynecology
PROC: 10D00Z1 Extraction of Products of Conception, Low, Open Approach (ICD-10-PCS; CPT 59514; principal; 2020-03-28 12:00)
DX: O34.211 Maternal care for low transverse scar from previous cesarean delivery (principal); Z30.2 Encounter for sterilization; O10.92 Unspecified pre-existing hypertension complicating childbirth; O99.214 Obesity complicating childbirth; E66.9 Obesity, unspecified; Z3A.37 37 weeks gestation of pregnancy; Z37.0 Single live birth; N83.8 Other noninflammatory disorders of ovary, fallopian tube and broad ligament; Z23 Encounter for immunization
CPT/HCPCS: 36415; 85025; 85461; 88302; 90384; 90471; 90653; 90715; A9270; G0008; J0690; J1885; J2274; J2370; J2405; J2590; J2790

== ENCOUNTER 2020-12-02 19:55 | Emergency (ER) | payer OTHER, SELFPAY ==
[2020-12-02 20:30] VITALS: BP 150/103; PULSE 93; RESP 16; TEMP 37.2; O2SAT 100
--- NOTE | 2020-12-02 20:52 | ED.ABDPAIN ---
HPI - Abdominal Pain General Chief Complaint: Urogenital-Female Stated Complaint: possible uti Time Seen by Provider: 12/02/20 20:32 Source: patient and RN notes reviewed Mode of arrival: ambulatory Limitations: no limitations History of Present Illness HPI narrative: mild suprapubic and right flank pain x 3 days. no fever or hematuria. prior similar UTI sxs. MD elicited complaint: abdominal pain and flank pain Pertinent past history: kidney stones and past UTI Onset (ago): day(s) (3) Pain Consistency: constant Location: R flank and suprapubic Severity: mild Pain scale (0-10): 4 Quality: cramping, aching and dull Radiation: R flank Migration to: no migration Exacerbating factors: nothing Relieving factors: nothing Context: confirms other (prior UTI) Related Data Date of Last Menstrual Period: 11/17/20 Patient : No Home Medications Medication Instructions Recorded Confirmed albuterol sulfate 2 puff INHALATION QID PRN 08/28/19 12/02/20 montelukast 10 mg PO DAILY 12/10/19 12/02/20 fluoxetine 20 mg PO DAILY 03/28/20 12/02/20 Allergies Allergy/AdvReac Type Severity Reaction Status Date / Time Sulfa (Sulfonamide Allergy Unknown Swelling Verified 03/23/20 12:44 Antibiotics) of Lip/Tongue/Throat vancomycin Allergy Unknown Rash Verified 03/23/20 12:44 Review of Systems Review of Systems: All systems reviewed & are unremarkable except as noted in HPI and below Constitutional: Constitutional: Reports as per HPI and Reports no additional constitutional complaints Eyes: Eyes: Reports as per HPI and Reports no additional eye complaints ENT: Reports system reviewed and no additional complaints, except as documented and Reports as per HPI Cardiovascular: Cardiovascular: Reports as per HPI and Reports no additional cardiovascular complaints Respiratory: Respiratory: Reports as per HPI and Reports no additional respiratory complaints Gastrointestinal: Gastrointestinal: Reports as per HPI and Reports no additional gastrointestinal complaints Genitourinary: Genitourinary: Reports no additional female genitourinary complaints, Reports as per HPI and Reports flank pain Musculoskeletal: Musculoskeletal: Reports no additional musculoskeletal complaints and Reports as per HPI Integumentary/Breasts: Skin/Breast: Reports system reviewed and no additional complaints, except as docu and Reports as per HPI Neurologic: Reports system reviewed and no additional complaints, except as documented and Reports as per HPI Psychiatric: Psychiatric: Reports no additional psychiatric complaints and Reports as per HPI Endocrine: Endocrine: Reports no additional endocrine complaints and Reports as per HPI Hematologic/Lymphatic: Hematologic/Lymphatic: Reports no additional hematologic/lymphatic complaints and Reports as per HPI Allergic/Immunologic: Allergic/Immunologic: Reports no additional allergic/immunologic complaints and Reports as per HPI PMFSH Past Medical History Medical History (Updated 12/03/20 @ 00:00 by Jimena Michael) Asthma Crohn's disease Hypertension Kidney stone Seasonal allergies Surgical History Surgical History Previous section S/P ureteral stent placement Family History Family History Father Hypertension Heart disease Social History Social History Smoking status: Never smoker Second hand tobacco smoke exposure: Yes Substance use: never Gender identity (if verbalized by the patient): Female Spiritual care concerns: No Exam Const: General: no acute distress and alert Nutritional Appearance: well nourished Orientation/consciousness: patient oriented x3 Limitations: no limitations HENMT: Head: normal to inspection Ears: external ears normal and TM's normal bilaterally General nose exam: Normal
[2020-12-02 21:00] LABS: Add Urine Microscopic? NO; Appearance Urine Clear (Clear); Bilirubin Urine Negative (Negative); Blood Urine Negative (Negative); Color Urine Light Yellow (Yellow); Glucose Urine UA Negative (Negative); Ketones Urine Negative (Negative); Leukocyte Esterase Ur Negative (Negative); Nitrate Urine Negative (Negative); Protein Urine Negative (Negative); Urobilinogen Urine 0.2 mg/dL (0.2-1.0); pH Urine 6.5 (5.0-8.0)
[2020-12-02] MEDS: cefTRIAXone 1 GM VIAL IM (21:10)
[2020-12-02] MEDS: ACETAMINOPHEN 325 MG TABLET 650 MG PO (21:10)
[2020-12-02 21:23] VITALS: BP 128/93; PULSE 77; RESP 16; TEMP 37.2; O2SAT 97
[2020-12-02 21:28] VITALS: BP 128/93; PULSE 77; RESP 16; TEMP 37.2; O2SAT 97
--- NOTE | 2020-12-03 12:49 | PC.NURSE ---
pt contacted RN at 1240 12/03/20 to report medication was not a preferred pjharmacy, JULIO Saleem. RN contacted [facility] pharmacist, Estella and gave verbal prescription order.
== END 2020-12-02 21:29 | disposition home or self-care (01) ==
PROVIDERS: Emergency Provider Emergency Medicine
DX: N39.0 Urinary tract infection, site not specified (principal)
CPT/HCPCS: 81003; 96372; 99283; A9270; J0696

== ENCOUNTER 2021-01-08 19:44 | Emergency (ER) | payer OTHER, SELFPAY ==
--- NOTE | ~2021-01-08 | XR_ITS ---
EXAMINATION: [id number] DATE: 01/08/2021 20:21 INDICATION: Left chest pain. TECHNIQUE: A frontal view of the chest and 3 views of the left ribs were obtained. COMPARISON: Chest 2 views 08/28/2019 FINDINGS: The chest demonstrates clear lungs without pneumonia, pleural effusion, or pneumothorax. Th e heart size is normal. IMPRESSION: 1. No rib fracture. Reviewed, dictated and finalized at location A. IMPRESSION: 1. No rib fracture.
[2021-01-08 19:50] VITALS: BP 146/100; PULSE 100; RESP 20; TEMP 37.1; O2SAT 100
--- NOTE | 2021-01-08 19:57 | ED.BACK ---
HPI - Back Pain/Injury General Chief Complaint: Back Pain/Injury Stated Complaint: back,shoulder pain Time Seen by Provider: 01/08/21 19:57 Source: patient Mode of arrival: ambulatory Limitations: no limitations History of Present Illness HPI Narrative: 35-year-old woman with a history of anxiety and hypertension comes in today complaining of pain in her left upper back this started this morning after lifting a heavy tote. She states that she has pain when she takes a deep breath and when she lifts her ipsilateral arm. she has had some low back pain problems in the past including a slipped disc . She denies cough, shortness of breath, offices, nausea, vomiting, cold symptoms, dysuria, hematuria and nausea. MD elicited complaint: back injury Onset (ago): hour(s) (12) Timing: constant Severity: severe Quality: sharp Location: left upper back Radiation: none Exacerbating factors: movement, deep breaths and lifting Context: while lifting Treatments prior to arrival: NSAIDS and acetaminophen Related Data Home Medications Medication Instructions Recorded Confirmed fluoxetine 20 mg PO DAILY 03/28/20 01/08/21 Allergies Allergy/AdvReac Type Severity Reaction Status Date / Time Sulfa (Sulfonamide Allergy Unknown Swelling Verified 03/23/20 12:44 Antibiotics) of Lip/Tongue/Throat vancomycin Allergy Unknown Rash Verified 03/23/20 12:44 Review of Systems Review of Systems: All systems reviewed & are unremarkable except as noted in HPI and below Constitutional: Constitutional: Denies chills and Denies fever(s) ENT: Denies nasal congestion and Denies sore throat Cardiovascular: Cardiovascular: Denies chest pain and Denies radiating jaw, neck or arm pain Respiratory: Respiratory: Denies cough, Denies dyspnea and Denies wheezing Gastrointestinal: Gastrointestinal: Denies abdominal pain, Denies diarrhea, Denies nausea and Denies vomiting Genitourinary: Genitourinary: Denies nocturia and Denies dysuria Integumentary/Breasts: Skin/Breast: Denies pruritus, Denies erythema and Denies rash Neurologic: Denies vertigo, Denies dizziness and Denies syncope [facility] Past Medical History Medical History (Updated 01/08/21 @ 20:17 by Luis F Jackson MD) Asthma Crohn's disease Hypertension Kidney stone Seasonal allergies Surgical History Surgical History Previous section S/P ureteral stent placement Family History Family History Father Hypertension Heart disease Social History Social History Smoking status: Never smoker Second hand tobacco smoke exposure: Yes Substance use: never Gender identity (if verbalized by the patient): Female Spiritual care concerns: No Exam Const: Other: Moderate acute distress. Eyes: Conjunctivae: conjunctivae normal Pupils: Equal, round and reactive pupils present EOM: EOMs intact bilaterally Resp: Effort & Inspection: normal respiratory effort and not labored Auscultation: clear to auscultation bilaterally, no rales, no rhonchi and no wheezes Cardio: Rate: regular rate Rhythm: regular rhythm Heart sounds: no murmurs Back/Spine/Pelvis: Other: Tender to palpation just below the left scapula. There is no swelling, crepitus or abnormal contour. Skin: General skin exam: normal color, no jaundice and no pallor Rashes: no rashes Neuro: General: patient oriented x3, moves all extremities, no focal motor deficits and CN's II-XI intact bilaterally Speech: normal speech Gait exam (Neuro): Normal gait present Other: Lower extremity DTRs are normal Extrem: General: normal to inspection and no clubbing, cyanosis or edema Psych: Appearance: grossly normal and well kempt Mental Status: mental status grossly normal Affect: normal affect Attitude: cooperative Thought content: Yes Normal th
[2021-01-08 21:08] VITALS: BP 138/87; PULSE 87; RESP 18; TEMP 36.2; O2SAT 99
== END 2021-01-08 21:18 | disposition home or self-care (01) ==
PROVIDERS: Emergency Provider Emergency Medicine
DX: S39.012A Strain of muscle, fascia and tendon of lower back, initial encounter (principal)
CPT/HCPCS: 71101; 99283

== ENCOUNTER 2021-10-03 18:18 | Emergency (ER) | payer OTHER, SELFPAY ==
[2021-10-03 18:25] VITALS: BP 146/90; PULSE 91; RESP 16; TEMP 36.2; O2SAT 99
--- NOTE | 2021-10-03 18:28 | ED.FEMALEGU ---
HPI - Female Genitourinary General Chief complaint: Urogenital-Female Stated complaint: Possible UTI Time Seen by Provider: 10/03/21 18:29 Source: patient Mode of arrival: ambulatory History of Present Illness HPI Narrative: 36-year-old female with a history of Crohn's disease, kidney stones status post ureteral stent, status post BTL, hypertension, recurrent urinary tract infection presents to the ER with a 4 day history of -- suprapubic abdominal -- dysuria MD elicited complaint: dysuria and UTI Pertinent past history: recurrent UTIs Onset (ago): day(s) ( started 4 days ago) Severity: moderate Female Urogenital Radiation: Non-Radiating Quality of pain: burning Consistency: intermittent Vaginal discharge: none Vaginal bleeding: none Urinary symptoms: Dysuria, Urgency and Frequency Exacerbating factors: none Relieving factors: none Treatment prior to arrival: none Patient : No Related Data : 4 Para: 4 Total number of abortions (spontaneous and elective): 0 Home Medications Medication Instructions Recorded Confirmed fluoxetine 20 mg capsule 20 mg PO DAILY 03/28/20 10/03/21 Allergies Allergy/AdvReac Type Severity Reaction Status Date / Time Sulfa (Sulfonamide Allergy Unknown Swelling Verified 10/03/21 18:29 Antibiotics) of Lip/Tongue/Throat vancomycin Allergy Unknown Rash Verified 10/03/21 18:29 Review of Systems Review of Systems: All systems reviewed & are unremarkable except as noted in HPI and below Constitutional: Constitutional: Reports as per HPI and Reports no additional constitutional complaints Eyes: Eyes: Reports as per HPI and Reports no additional eye complaints ENT: Reports system reviewed and no additional complaints, except as documented and Reports as per HPI Cardiovascular: Cardiovascular: Reports as per HPI and Reports no additional cardiovascular complaints Respiratory: Respiratory: Reports as per HPI and Reports no additional respiratory complaints Gastrointestinal: Gastrointestinal: Reports as per HPI and Reports no additional gastrointestinal complaints Genitourinary: Genitourinary: Reports nocturia and Reports dysuria Comments: suprapubic pain Musculoskeletal: Musculoskeletal: Reports no additional musculoskeletal complaints Integumentary/Breasts: Skin/Breast: Reports system reviewed and no additional complaints, except as docu and Reports as per HPI Neurologic: Reports system reviewed and no additional complaints, except as documented and Reports as per HPI Psychiatric: Psychiatric: Reports no additional psychiatric complaints and Reports as per HPI Endocrine: Endocrine: Reports no additional endocrine complaints and Reports as per HPI Hematologic/Lymphatic: Hematologic/Lymphatic: Reports no additional hematologic/lymphatic complaints and Reports as per HPI Allergic/Immunologic: Allergic/Immunologic: Reports no additional allergic/immunologic complaints and Reports as per HPI PMFSH Past Medical History Medical History (Updated 10/03/21 @ 19:37 by Livan Barry MD) Asthma Crohn's disease Hypertension Kidney stone Seasonal allergies Surgical History Surgical History Previous section S/P ureteral stent placement Family History Family History Father Hypertension Heart disease Social History Social History Smoking status: Never smoker Second hand tobacco smoke exposure: Yes Substance use: never Gender identity (if verbalized by the patient): Female Spiritual care concerns: No Exam Const: General: healthy appearing Nutritional Appearance: well nourished Orientation/consciousness: patient oriented x3 Limitations: no limitations HENMT: Head: normal to inspection Ears: external ears normal General nose exam: Normal external nose present F
[2021-10-03 19:17] LABS: Appearance Urine Clear (Clear); Bilirubin Urine Negative (Negative); Color Urine Yellow (Yellow); Glucose Urine UA Negative (Negative); Ketones Urine Negative (Negative); Leukocyte Esterase Ur Negative (Negative); Nitrate Urine Negative (Negative); Protein Urine Negative (Negative); Specific Grav Ur >= 1.030 (1.010-1.020); Urobilinogen Urine 0.2 mg/dL (0.2-1.0)
[2021-10-03 19:26] LABS: Add Urine Microscopic? YES; Blood Urine Trace-Intact (Negative); RBC Urine 0-2 /hpf (0-2); WBC Urine 0-3 /hpf (0-3)
[2021-10-03 19:27] LABS: Bacteria Urine Trace /hpf; Mucus Urine Moderate /lpf; Squamous Epithelial Cell Urine Few /hpf (Few)
[2021-10-03 19:45] VITALS: BP 131/86; PULSE 82; RESP 17; TEMP 36.6; O2SAT 98
== END 2021-10-03 19:56 | disposition home or self-care (01) ==
PROVIDERS: Emergency Provider Internal Medicine Critical Care Medicine
DX: R30.0 Dysuria (principal)
CPT/HCPCS: 81001; 99282

== ENCOUNTER 2021-10-12 23:09 | Emergency (ER) | payer OTHER, SELFPAY ==
--- NOTE | ~2021-10-12 | XR_ITS ---
EXAMINATION: XR chest 1V portable DATE: 10/12/2021 23:48 INDICATION: Chest pain. Shortness of breath. TECHNIQUE: A single frontal view of the chest was obtained. COMPARISON: Chest 2 views 12/28/2019 FINDINGS: The chest demonstrates clear lungs without pneumonia, pleural effusion, or pneumothorax. Th e heart size is normal. IMPRESSION: 1. No acute cardiopulmonary disease. Reviewed, dictated and finalized at location A.
[2021-10-12 23:10] VITALS: BP 156/100; PULSE 97; RESP 18; TEMP 36.2; O2SAT 100
--- NOTE | 2021-10-12 23:14 | ED.CHESTPAIN ---
HPI - Chest Pain General Chief Complaint: Chest Pain Stated Complaint: Chest Pain Time Seen by Provider: 10/12/21 23:14 Source: patient Mode of arrival: ambulatory History of Present Illness HPI narrative: 36 Old with a history of recurrent urinary tract infection, kidney stones status post ureteral stent, anxiety /depression presents to the ER with multiple day history of -- chest pain/ left chest pressure which is unprovoked. No lightheadedness. Duration pain is variable. Most of the times the pain resolved spontaneously. -- shortness of breath. no cough or sputum production. One thousand 18-year-old son who had surgery for VSD at 5 months of age. She is stressed about his health. MD complaint: chest pain and chest heaviness Onset (ago): day(s) Timing of current episode: episodic Prior episodes: Yes Onset: during rest Pain location: left chest Pain radiation: left shoulder Severity: mild Quality: aching Relieving factors: nothing Exacerbating factors: nothing Treatment prior to arrival: none Risk Factors Coronary artery disease risk factors: none and hypertension Thoracic aortic dissection risk factors: none Related Data Home Medications Medication Instructions Recorded Confirmed fluoxetine 20 mg capsule 20 mg PO DAILY 03/28/20 10/12/21 Allergies Allergy/AdvReac Type Severity Reaction Status Date / Time Sulfa (Sulfonamide Allergy Unknown Swelling Verified 10/03/21 18:29 Antibiotics) of Lip/Tongue/Throat vancomycin Allergy Unknown Rash Verified 10/03/21 18:29 Review of Systems Review of Systems: All systems reviewed & are unremarkable except as noted in HPI and below Constitutional: Constitutional: Reports as per HPI and Reports no additional constitutional complaints Eyes: Eyes: Reports as per HPI and Reports no additional eye complaints ENT: Reports system reviewed and no additional complaints, except as documented and Reports as per HPI Cardiovascular: Cardiovascular: Reports as per HPI, Reports no additional cardiovascular complaints and Reports chest pain Respiratory: Respiratory: Reports as per HPI, Reports no additional respiratory complaints and Reports dyspnea Gastrointestinal: Gastrointestinal: Reports as per HPI and Reports no additional gastrointestinal complaints Genitourinary: Genitourinary: Reports no additional female genitourinary complaints and Reports as per HPI Comments: Patient was seen on 10/04/2019 for dysuria which has resolved. Musculoskeletal: Musculoskeletal: Reports no additional musculoskeletal complaints and Reports as per HPI Integumentary/Breasts: Skin/Breast: Reports system reviewed and no additional complaints, except as docu and Reports as per HPI Neurologic: Reports system reviewed and no additional complaints, except as documented and Reports as per HPI Psychiatric: Psychiatric: Reports no additional psychiatric complaints, Reports as per HPI and Reports anxiety Endocrine: Endocrine: Reports no additional endocrine complaints and Reports as per HPI Hematologic/Lymphatic: Hematologic/Lymphatic: Reports no additional hematologic/lymphatic complaints Allergic/Immunologic: Allergic/Immunologic: Reports no additional allergic/immunologic complaints and Reports as per HPI [facility] Past Medical History Medical History (Updated 10/13/21 @ 00:15 by Livan Barry MD) Asthma Crohn's disease Hypertension Kidney stone Seasonal allergies Surgical History Surgical History Previous section S/P ureteral stent placement Family History Family History Father Hypertension Heart disease Social History Social History Smoking status: Never smoker Second hand tobacco smoke exposure: Yes Substance use: never Gender identity (if verbalized by the patient): Female Spiritua
--- NOTE | 2021-10-12 23:29 | ECG_ITS ---
Measurements Intervals [place] Rate: 91 P: 3 ME: 97 QRS: 0 QRSD: 83 T: 6 QT: 361 QTc: 446 Interpretive Statements SINUS RHYTHM WITH SHORT ME INTERVAL WITHIN NORMAL LIMITS COMPARED TO ECG 01/13/2020 11:26:30 NO SIGNIFICANT CHANGES Electronically Signed On 10-13-2021 14:22:48 CDT by Guero Qureshi M.D.
[2021-10-12 23:44] LABS: Basophils Absolute Auto 0.04 K/mm3 (0.00-0.10); Basophils Percent Auto 0.6 % (0.0-1.0); Eosinophils Absolute Auto 0.16 K/mm3 (0.02-0.50); Eosinophils Percent Auto 2.3 % (1.0-6.0); Hematocrit 36.2 % (35.0-49.0); Hemoglobin 11.9 g/dL (12.0-15.0); Immature Granulocyte Absolute 0.02 K/mm3 (0.00-0.00); Immature Granulocyte Percent A 0.3 % (0.0-0.0); Lymphocytes Absolute Auto 2.18 K/mm3 (1.10-4.50); Lymphocytes Percent Auto 31.1 % (18.0-42.0); Mean Corpuscular HGB Conc 32.9 g/dL (32.0-36.0); Mean Corpuscular Hemoglobin 29.4 pg (27.0-31.0); Mean Corpuscular Volume 89.4 fL (78.0-102.0); Monocytes Absolute Auto 0.49 K/mm3 (0.10-0.90); Neutrophils Absolute Auto 4.1 K/mm3 (1.7-7.2); Neutrophils Percent Auto 58.7 % (50.0-70.0); Platelet Count Result 391 K/mm3 (150-420); Red Blood Count 4.05 M/mm3 (4.20-5.40); Red Cell Distribution Width 13.4 % (11.6-14.4)
[2021-10-12 23:46] VITALS: BP 134/91; PULSE 81; RESP 20; O2SAT 100
[2021-10-13 00:06] LABS: Alanine Aminotransferase 22 U/L (14-59); Albumin Level 3.7 g/dL (3.4-5.0); Alkaline Phosphatase 104 U/L (46-116); Anion Gap 10 mmol/L (8-16); Aspartate Amino Transferase 12 U/L (15-37); Bilirubin,Total 0.3 mg/dL (0.00-1.00); Blood Urea Nitrogen 10 mg/dL (7-18); Carbon Dioxide 24 mmol/L (21-32); Chloride 105 mmol/L (98-108); Estimated CRCL calculation 93 ml/min; Estimated Glomerular Filt Rate > 60; Glucose 104 mg/dL (70-99); NT Pro B Type Natriuretic Pept 32 pg/mL (0-125); Osmolality Calculated 287 mOsm/kg (285-295); Potassium 3.4 mmol/L (3.5-5.1); Sodium 139 mmol/L (136-145); Total Protein 7.4 g/dL (6.4-8.2); Troponin I 5.5 ng/L (0.00-60.4)
[2021-10-13 00:13] VITALS: BP 118/82; PULSE 78; RESP 18; TEMP 36.3; O2SAT 99
== END 2021-10-13 00:19 | disposition home or self-care (01) ==
PROVIDERS: Emergency Provider Internal Medicine Critical Care Medicine; PCP Family Medicine
DX: F41.9 Anxiety disorder, unspecified (principal); R07.89 Other chest pain
CPT/HCPCS: 36415; 71045; 80053; 83880; 84484; 85025; 93005; 99284

== ENCOUNTER 2022-04-15 07:22 | Emergency (ER) | payer OTHER, SELFPAY ==
--- NOTE | ~2022-04-15 | CT_ITS ---
EXAMINATION: CT abdomen pelvis wo con DATE: 04/15/2022 08:54 INDICATION: Bloody diarrhea. Crohn's disease. TECHNIQUE: Computed tomography (CT) of the abdomen and pelvis was performed without intravenous contr ast. Automated exposure control and iterative reconstruction technique were employed. The dose-length product was 465.64 mGy-cm. COMPARISON: CT abdomen and pelvis 08/11/2018 FINDINGS: The visualized portions of the lung bases are clear without pneumonia or pleural effusion. The heart size is normal. No pericardial effusion. There is a small sliding hiatal hernia. The liver, gallbladder, spleen, pancreas, and adrenal glands are normal. There is a 2 mm stone in right kidney. There is a 2.1 cm cyst in left kidney. There is wall thickening of the sigmoid colon with adjacent f at stranding, consistent with colitis. The appendix is normal. There are no dilated loops of bowel. T here is fat stranding at the root of the small bowel mesentery. There are no pathologically enlarged lymph nodes. There is no free intraperitoneal fluid. There is mild lumbar spondylosis. There is mild chronic anterior wedging of multiple lower thoracic vertebral bodies. IMPRESSION: 1. Mild sigmoid colitis. 2. Worsened fat stranding at the root of the small bowel mesentery, which may be edema or inflammatio n/scarring (mesenteric panniculitis). 3. Small sliding hiatal hernia. Reviewed, dictated and finalized at location A. ING SPECIALIST IMPRESSION: 1. Mild sigmoid colitis. 2. Worsened fat stranding at the root of the small bowel mesentery, which may b e edema or inflammation/scarring (mesenteric panniculitis). 3. Small sliding hiatal hernia.
[2022-04-15 07:28] VITALS: BP 137/83; PULSE 103; RESP 17; TEMP 36.9; O2SAT 100
--- NOTE | 2022-04-15 07:28 | ED.ABDPAIN ---
HPI - Abdominal Pain General Chief Complaint: Abdominal Pain Stated Complaint: abd pain, bloody stool Time Seen by Provider: 04/15/22 07:27 Source: patient and RN notes reviewed Mode of arrival: ambulatory Limitations: no limitations History of Present Illness HPI narrative: Patient states that she had an episode of abdominal pain this morning and began about 4 hours prior to arrival. She has a history of Crohn's disease but does not currently see a panel wirer. She denied any fever chills. She denied any nausea vomiting. She noticed that some for stool was loose almost similar to diarrhea but also notice it appeared to be blood streak. She says her pain has improved but she was mostly concerned about the blood in her stool. MD elicited complaint: abdominal pain Pertinent past history: other (Crohn's Dz) Onset (ago): hour(s) (4) Pain Consistency: intermittent Location: diffuse Severity: moderate Quality: cramping Migration to: no migration Exacerbating factors: eating Relieving factors: nothing Context: confirms history of similar episodes Associated symptoms: diarrhea (small amt of blood) Related Data Patient : No Home Medications Medication Instructions Recorded Confirmed fluoxetine 20 mg capsule 20 mg PO DAILY 03/28/20 04/15/22 Allergies Allergy/AdvReac Type Severity Reaction Status Date / Time Sulfa (Sulfonamide Allergy Unknown Swelling Verified 04/15/22 07:41 Antibiotics) of Lip/Tongue/Throat vancomycin Allergy Unknown Rash Verified 04/15/22 07:41 Review of Systems Review of Systems: All systems reviewed & are unremarkable except as noted in HPI and below Constitutional: Constitutional: Denies chills and Denies fever(s) Gastrointestinal: Gastrointestinal: Denies nausea and Denies vomiting PMF Past Medical History Medical History (Updated 04/15/22 @ 09:59 by Jakub Elizabeth MD) Asthma Crohn's disease Hypertension Kidney stone Seasonal allergies Surgical History Surgical History Previous section S/P ureteral stent placement Family History Family History Father Hypertension Heart disease Social History Social History Smoking status: Never smoker Second hand tobacco smoke exposure: Yes Substance use: never Gender identity (if verbalized by the patient): Female Spiritual care concerns: No Exam Const: General: healthy appearing and no acute distress Nutritional Appearance: well nourished Orientation/consciousness: patient oriented x3 Limitations: no limitations Other: female tech in room during examination. HENMT: Head: normal to inspection Ears: external ears normal Eyes: Conjunctivae: conjunctivae normal Pupils: Equal, round and reactive pupils present EOM: EOMs intact bilaterally Neck: Neck: normal visual inspection Resp: Effort & Inspection: normal respiratory effort Auscultation: clear to auscultation bilaterally Cardio: Rate: regular rate Rhythm: regular rhythm GI: GI Palp: Yes Soft to palpation, Yes Tenderness to palpation present (GI) (mild), No Guarding due to palpation present (GI) and No Rebound tenderness present Auscultation: normal bowel sounds Back/Spine/Pelvis: Cervical Spine: cervical ROM normal Thoracic/Lumbar Spine: thoraco-lumbar ROM normal Skin: General skin exam: normal color Rashes: no rashes Neuro: General: patient oriented x3, moves all extremities, no focal motor deficits and CN's II-XI intact bilaterally Speech: normal speech Gait exam (Neuro): Normal gait present Extrem: General: normal to inspection and no clubbing, cyanosis or edema Psych: Mental Status: mental status grossly normal Affect: normal affect Attitude: cooperative Course Vital Signs Vital signs: Vital Signs Temperature 36.9 C 04/15/22 07:28 Pulse Rate 1
[2022-04-15 07:34] VITALS: BP 137/83; PULSE 115; RESP 16; TEMP 36.9; O2SAT 99
[2022-04-15 08:02] LABS: Basophils Absolute Auto 0.05 K/mm3 (0.00-0.10); Basophils Percent Auto 0.4 % (0.0-1.0); Eosinophils Absolute Auto 0.06 K/mm3 (0.02-0.50); Eosinophils Percent Auto 0.5 % (1.0-6.0); Hematocrit 36.4 % (35.0-49.0); Immature Granulocyte Absolute 0.07 K/mm3 (0.00-0.00); Immature Granulocyte Percent A 0.6 % (0.0-0.0); Lymphocytes Absolute Auto 0.58 K/mm3 (1.10-4.50); Lymphocytes Percent Auto 4.6 % (18.0-42.0); Mean Corpuscular Hemoglobin 28.7 pg (27.0-31.0); Mean Corpuscular Volume 87.1 fL (78.0-102.0); Mean Platelet Volume 8.9 fl (9.2-11.8); Monocytes Absolute Auto 0.45 K/mm3 (0.10-0.90); Monocytes Percent Auto 3.6 % (2.0-11.0); Neutrophils Absolute Auto 11.4 K/mm3 (1.7-7.2); Neutrophils Percent Auto 90.3 % (50.0-70.0); Platelet Count Result 418 K/mm3 (150-420); Red Blood Count 4.18 M/mm3 (4.20-5.40); Red Cell Distribution Width 14.5 % (11.6-14.4); White Blood Count 12.6 K/mm3 (4.8-10.8)
[2022-04-15 08:10] LABS: Appearance Urine Clear (Clear); Bilirubin Urine Negative (Negative); Glucose Urine UA Negative (Negative); Ketones Urine 1+ (Negative); Leukocyte Esterase Ur Negative LEU/UL (Negative); Nitrate Urine Negative (Negative); Protein Urine Negative (Negative); Urobilinogen Urine 0.2 mg/dL (0.2-1.0)
[2022-04-15 08:16] LABS: Alanine Aminotransferase 25 U/L (14-59); Alkaline Phosphatase 119 U/L (46-116); Anion Gap 10 mmol/L (8-16); Aspartate Amino Transferase 17 U/L (15-37); Bilirubin,Total 0.3 mg/dL (0.00-1.00); Blood Urea Nitrogen 9 mg/dL (7-18); Calcium 8.7 mg/dL (8.5-10.1); Carbon Dioxide 25 mmol/L (21-32); Chloride 106 mmol/L (98-108); Estimated CRCL calculation 91 ml/min; Estimated Glomerular Filt Rate > 60; Glucose 128 mg/dL (70-99); Lipase 60 U/L (73-393); Osmolality Calculated 292 mOsm/kg (285-295); Potassium 3.6 mmol/L (3.5-5.1); Sodium 141 mmol/L (136-145); Total Protein 7.9 g/dL (6.4-8.2)
[2022-04-15 08:19] LABS: CRP < 0.5 mg/dL (0.0-0.9)
--- NOTE | 2022-04-15 08:19 | PC.NURSE ---
0727 assisted with in room exam.
[2022-04-15 08:23] LABS: Pregnancy On Board Control Positive; Urine Pregnancy Test Negative
[2022-04-15 08:23] LABS: Add Urine Microscopic? YES; Blood Urine Trace-Intact (Negative); Color Urine Light Yellow (Yellow); RBC Urine 0-2 /hpf (0-2); Squamous Epithelial Cell Urine Moderate /hpf (Few)
[2022-04-15] MEDS: methylPREDNISolone SOD SUCC 125 MG VIAL IM (10:02)
[2022-04-15 10:09] VITALS: BP 130/93; PULSE 85; RESP 16; TEMP 36.9; O2SAT 97
== END 2022-04-15 10:13 | disposition home or self-care (01) ==
PROVIDERS: Emergency Provider Emergency Medicine; PCP Family Medicine
DX: K50.111 Crohn's disease of large intestine with rectal bleeding (principal)
CPT/HCPCS: 36415; 74176; 80053; 81001; 81025; 83605; 83690; 85025; 86140; 96372; 99284; J2930

== ENCOUNTER 2023-05-16 14:30 | Emergency (ER) | payer OTHER, SELFPAY ==
[2023-05-16] VITALS (8 sets, daily range): BP systolic 120–138; BP diastolic 94–99; PULSE 98–109; RESP 11–14; TEMP 36.8–37; O2SAT 97–100
--- NOTE | ~2023-05-16 | XR_ITS ---
XR chest 1V portable DATE: 05/16/2023 15:03 INDICATION: Chest heaviness for 45 minutes TECHNIQUE: Portable AP chest on 05/16/2023 at 1504 hours COMPARISON: 10/12/2021 portable AP chest at 2351 hours FINDINGS: Normal heart size. No hilar or mediastinal enlargement. No pulmonary infiltrate or consolidation, pleural effusion or pulmonary vascular congestion or pneumo thorax. Included skeletal structures are unremarkable. IMPRESSION: No active cardiopulmonary disease Reviewed, dictated and finalized at location L. TIC WELDER
--- NOTE | 2023-05-16 14:44 | ECG_ITS ---
Measurements Intervals [place] Rate: 102 P: 50 WI: 123 QRS: 24 QRSD: 83 T: 40 QT: 336 QTc: 438 Interpretive Statements SINUS TACHYCARDIA T WAVE ABNORMALITY IN ANTERIOR LEADS- CONSIDER ISCHEMIA BASELINE ARTIFACT- I, II, AVR, AVL, AVF ABNORMAL ECG COMPARED TO ECG 10/12/2021 23:21:46 SINUS TACHYCARDIA NOW PRESENT T-WAVE ABNORMALITY NOW PRESENT Electronically Signed On 05-16-2023 15:03:20 BARKER PEELER by Bong Billingsley D.O.
[2023-05-16 15:10] LABS: Basophils Absolute Auto 0.08 K/mm3 (0.00-0.10); Eosinophils Absolute Auto 0.63 K/mm3 (0.02-0.50); Eosinophils Percent Auto 8.2 % (1.0-6.0); Hematocrit 38.7 % (35.0-49.0); Hemoglobin 12.5 g/dL (12.0-15.0); Immature Granulocyte Absolute 0.04 K/mm3 (0.00-0.00); Immature Granulocyte Percent A 0.5 % (0.0-0.0); Lymphocytes Absolute Auto 1.01 K/mm3 (1.10-4.50); Lymphocytes Percent Auto 13.2 % (18.0-42.0); Mean Corpuscular HGB Conc 32.3 g/dL (32.0-36.0); Mean Corpuscular Hemoglobin 27.3 pg (27.0-31.0); Mean Corpuscular Volume 84.5 fL (78.0-102.0); Mean Platelet Volume 9.3 fl (9.2-11.8); Monocytes Absolute Auto 0.51 K/mm3 (0.10-0.90); Monocytes Percent Auto 6.7 % (2.0-11.0); Neutrophils Absolute Auto 5.4 K/mm3 (1.7-7.2); Neutrophils Percent Auto 70.4 % (50.0-70.0); Platelet Count Result 402 K/mm3 (150-420); Red Blood Count 4.58 M/mm3 (4.20-5.40); Red Cell Distribution Width 15.3 % (11.6-14.4); White Blood Count 7.6 K/mm3 (4.8-10.8)
[2023-05-16 15:30] LABS: Alanine Aminotransferase 51 U/L (14-59); Albumin Level 3.6 g/dL (3.4-5.0); Alkaline Phosphatase 119 U/L (46-116); Anion Gap 11 mmol/L (8-16); Aspartate Amino Transferase 24 U/L (15-37); Bilirubin,Total 0.2 mg/dL (0.00-1.00); Blood Urea Nitrogen 9 mg/dL (7-18); Carbon Dioxide 25 mmol/L (21-32); Chloride 102 mmol/L (98-108); Estimated CRCL calculation 96 ml/min; Estimated Glomerular Filt Rate > 60; Glucose 112 mg/dL (70-99); Osmolality Calculated 285 mOsm/kg (285-295); Potassium 3.2 mmol/L (3.5-5.1); Sodium 138 mmol/L (136-145); Total Protein 8.3 g/dL (6.4-8.2); Troponin I 5.5 ng/L (0.00-60.4)
[2023-05-16 15:32] LABS: Influenza A QL RT-PCR Negative (Negative); Influenza B QL RT-PCR Negative (Negative); RSV RNA, RT-PCR Positive (Negative); SARS-CoV-2 RNA PCR Negative (Negative)
--- NOTE | 2023-05-16 15:46 | ED.CHESTPAIN ---
HPI - Chest Pain General Chief Complaint: Chest Pain Stated Complaint: chest pain Time Seen by Provider: 05/16/23 14:36 Source: patient and EMS Mode of arrival: EMS Limitations: no limitations History of Present Illness HPI narrative: patient presents with cough congestion via EMS also having some chest discomfort reproducible, nasal congestion and discharge with currently no fever chills with vitals blood pressure was elevated initially when she 1st came into the ER but patient states that she has been taking Sudafed for congestion. Currently she is having no fever chills did have some nausea receive Zofran by EMS denies shortness breath no abdominal no flank pain. MD complaint: chest discomfort Onset (ago): hour(s) Timing of current episode: episodic Onset: during rest Severity: mild Related Data Home Medications Medication Instructions Recorded Confirmed fluoxetine 20 mg capsule 20 mg PO DAILY 03/28/20 05/16/23 Allergies Allergy/AdvReac Type Severity Reaction Status Date / Time Sulfa (Sulfonamide Allergy Unknown Swelling Verified 05/16/23 14:40 Antibiotics) of Lip/Tongue/Throat vancomycin Allergy Unknown Rash Verified 05/16/23 14:40 Review of Systems Review of Systems: All systems reviewed & are unremarkable except as noted in HPI and below PMFSH Past Medical History Medical History (Updated 05/16/23 @ 15:50 by Guero Mosher MD) Asthma Crohn's disease Hypertension Kidney stone Seasonal allergies Surgical History Surgical History Previous section S/P ureteral stent placement Family History Family History Father Hypertension Heart disease Social History Social History Smoking status: Never smoker Second hand tobacco smoke exposure: Yes Substance use: never Living arrangements: with family Gender identity (if verbalized by the patient): Female Spiritual care concerns: No Exam Const: General: healthy appearing and no acute distress Nutritional Appearance: well nourished Orientation/consciousness: patient oriented x3 Limitations: no limitations HENMT: Other: Nasal congestion Eyes: Conjunctivae: conjunctivae normal Neck: Neck: normal visual inspection and no lymphadenopathy Chest: Chest palpation & inspection: normal inspection of the chest and tenderness Resp: Effort & Inspection: normal respiratory effort Auscultation: clear to auscultation bilaterally Cardio: Rate: tachycardic Rhythm: regular rhythm GI: GI Palp: Yes Soft to palpation Skin: General skin exam: normal color Rashes: no rashes Course Course Emergency Course: patient had blood work which showed that she had a decreased potassium level at 3.2 otherwise normal white count and the rest of her blood work was unremarkable. Chest x-ray showed no cardiopulmonary abnormalities, and patient was positive for RSV. With low potassium patient was given a supplement of potassium here in the emergency department. Vital Signs Vital signs: Vital Signs Temperature 37.0 C 05/16/23 14:30 Pulse Rate 106 H 05/16/23 14:30 Respiratory Rate 14 05/16/23 14:30 Blood Pressure 138/95 H 05/16/23 14:30 Pulse Oximetry 100 05/16/23 14:30 Oxygen Delivery Room Air 05/16/23 14:30 Temperature 37.0 C 05/16/23 14:30 Pulse Rate 98 05/16/23 15:21 Respiratory Rate 12 05/16/23 15:21 Blood Pressure 120/94 H 05/16/23 15:07 Pulse Oximetry 98 05/16/23 15:21 Oxygen Delivery Room Air 05/16/23 14:50 MDM - Chest Pain Lab Data 05/16/23 15:05 05/16/23 15:05 Labs: Lab Results 05/16/23 05/16/23 Range/Units 14:53 15:05 WBC 7.6 (4.8-10.8) K/mm3 RBC 4.58 (4.20-5.40) M/mm3 Hgb 12.5 (12.0-15.0) g/dL Hct 38.7 (35.0-49.0) % MCV 84.5 (78.0-102.0) f
[2023-05-16 15:47] LABS: Lactic Acid Reflex 1.7 mmol/L (0.4-2.0)
[2023-05-16] MEDS: POTASSIUM BICARBONATE 25 MEQ TABEF 50 MEQ PO (15:53)
== END 2023-05-16 16:06 | disposition home or self-care (01) ==
PROVIDERS: Emergency Provider Emergency Medicine; PCP Family Medicine
DX: J06.9 Acute upper respiratory infection, unspecified (principal); B97.4 Respiratory syncytial virus as the cause of diseases classified elsewhere; I10 Essential (primary) hypertension; J45.909 Unspecified asthma, uncomplicated; Z79.899 Other long term (current) drug therapy; Z20.822 Contact with and (suspected) exposure to COVID-19
CPT/HCPCS: 36415; 71045; 80053; 83605; 84484; 85025; 87637; 93005; 99284; A9270

== ENCOUNTER 2024-03-13 08:35 | Emergency (ER) | payer OTHER, SELFPAY ==
--- NOTE | ~2024-03-13 | XR_ITS ---
XR wrist RT min 3V 03/13/2024 08:53 INDICATION: Right wrist pain PROCEDURE: 4 views right wrist COMPARISON: No prior studies for comparison. FINDINGS: Fracture, dislocation or subluxation is not identified. The soft tissues appear within norm al limits. No foreign bodies are identified. IMPRESSION: 1: NO ACUTE BONE OR JOINT ABNORMALITY IDENTIFIED. Reviewed, dictated and finalized at location B. MOGRAPH OPERATOR HELPER
[2024-03-13 08:37] VITALS: BP 146/100; PULSE 85; RESP 18; TEMP 36.6; O2SAT 100
--- NOTE | 2024-03-13 08:44 | ED.GENADULT ---
HPI - General Adult General Chief complaint: Extremity Injury, Upper Stated complaint: right arm pain Time Seen by Provider: 03/13/24 08:43 Source: patient Mode of arrival: ambulatory History of Present Illness HPI narrative: 38 years old white female came to the emergency room because of pain at the right wrist and forearm after lifting her 30 lb a child few days ago. Worse with movement, better at rest. Related Data Home Medications Medication Instructions Recorded Confirmed fluoxetine 20 mg capsule 20 mg PO DAILY 03/28/20 03/13/24 Allergies Allergy/AdvReac Type Severity Reaction Status Date / Time Sulfa (Sulfonamide Allergy Unknown Swelling Verified 03/13/24 08:41 Antibiotics) of Lip/Tongue/Throat vancomycin Allergy Unknown Rash Verified 03/13/24 08:41 Review of Systems Review of Systems: All systems reviewed & are unremarkable except as noted in HPI and below PMFSH Past Medical History Medical History Asthma Crohn's disease Hypertension Kidney stone Seasonal allergies Surgical History Surgical History Previous section S/P ureteral stent placement Family History Family History Father Hypertension Heart disease Social History Social History Smoking status: Never smoker Second hand tobacco smoke exposure: Yes Substance use: never Living arrangements: with family Gender identity (if verbalized by the patient): Female Spiritual care concerns: No Exam Narrative: General appearance: Well-developed, well-nourished Skin: Normal color Musculoskeletal: Diffuse tenderness right for arm, no bruises, no swelling, no rash pain with moving right wrist Neurologic: Alert and oriented ?3, IT SYSTEMS ANALYST is normal as tested, no gross motor deficit Course Vital Signs Vital signs: Vital Signs Temperature 36.6 C 03/13/24 08:37 Pulse Rate 85 03/13/24 08:37 Respiratory Rate 18 03/13/24 08:37 Blood Pressure 146/100 H 03/13/24 08:37 Pulse Oximetry 100 03/13/24 08:37 Oxygen Delivery Room Air 03/13/24 08:37 Temperature 36.6 C 03/13/24 08:37 Pulse Rate 85 03/13/24 08:37 Respiratory Rate 18 03/13/24 08:37 Blood Pressure 146/100 H 03/13/24 08:37 Pulse Oximetry 100 03/13/24 08:37 Oxygen Delivery Room Air 03/13/24 08:37 Medical Decision Making MDM Narrative Medical decision making narrative: strain/ sprain of the right wrist is my concern. X-ray of the right wrist showed no acute osseous abnormality Vital Signs Vital Signs: Vital Signs Temperature 36.6 C 03/13/24 08:37 Pulse Rate 85 03/13/24 08:37 Respiratory Rate 18 03/13/24 08:37 Blood Pressure 146/100 H 03/13/24 08:37 Pulse Oximetry 100 03/13/24 08:37 Oxygen Delivery Room Air 03/13/24 08:37 Temperature 36.6 C 03/13/24 08:37 Pulse Rate 85 03/13/24 08:37 Respiratory Rate 18 03/13/24 08:37 Blood Pressure 146/100 H 03/13/24 08:37 Pulse Oximetry 100 03/13/24 08:37 Oxygen Delivery Room Air 03/13/24 08:37 Imaging Data Radiologist's impression: Impressions Wrist X-Ray 03/13/24 09:02 IMPRESSION: 1: NO ACUTE BONE OR JOINT ABNORMALITY IDENTIFIED. Critical Care Time Critical Care Time Critical Care Time: No Discharge Plan Discharge Clinical Impression: Sprain and strain of right wrist Patient Disposition: Home, Self-Care Condition: Stable Instructions: Splint Care (ED), Wrist Sprain (ED) Additional Instructions: Return if symptoms are worsening , call your family physician for appointment, take Tylenol, ibuprofen 600 every 6 hours as as needed for aches and pain, continue home medications. Prescriptions: No Action fluoxetine 20 mg Capsule 20 mg PO DAILY amlodipine 10 mg tablet 10 mg PO DAILY Qty: 30 0RF Follow-up/Referrals: Agnes,MD Sg [Primary Care Provider] -
== END 2024-03-13 09:07 | disposition home or self-care (01) ==
PROVIDERS: Emergency Provider Emergency Medicine; PCP Family Medicine
DX: S63.501A Unspecified sprain of right wrist, initial encounter (principal); S66.911A Strain of unspecified muscle, fascia and tendon at wrist and hand level, right hand, initial encounter; I10 Essential (primary) hypertension; X50.0XXA Overexertion from strenuous movement or load, initial encounter
CPT/HCPCS: 29125; 73110; 99283